=== PATIENT | female | born 1975 | race Two or more races ===

== ENCOUNTER 2017-04-22 21:00 | Inpatient (IN) | payer SELFPAY ==
[~2017-04-22] VITALS: Ht 162.6 cm; Wt 143.3 kg
[2017-04-22] MEDS ORDERED: ONDANSETRON PF 4 MG/2 ML VIAL. IV ONE (22:00)
[2017-04-22] MEDS ORDERED: IV NORMAL SALINE 1000ML BAG 1,000 ML IV ONE (22:00)
[2017-04-22] MEDS ORDERED: fentaNYL PF VIAL 100 MCG/2 ML VIAL IV ONE (22:00)
--- NOTE | 2017-04-22 22:02 | PHYS DOC ---
Past Medical History Past Medical History: Anemia, Diabetes-Type II, Hypertension, Hypothyroid Past Surgical History: Other Additional Past Surgical Histo: L. KNEE Alcohol Use: None Drug Use: None Adult General Chief Complaint Chief Complaint: MULTIPLE COMPLAINTS HPI HPI Patient is a 41 year old F who presents with abdominal pain, nausea vomiting. Patient states she's had right lower quadrant abdominal pain for the past day with increased nausea vomiting and fevers and dysuria. Patient states she's had increased urinary frequency with burning. Patient did not take her temperature home however has had chills all day. Patient has had no previous abdominal surgeries. Patient denies any chest pain or shortness of breath. Patient has no other complaints. Review of Systems Review of Systems GEN: Fever HEENT: Denies blurred vision, sore throat CV: Denies chest pain RESP: Denies shortness of air, cough GI: Right lower quadrant abdominal pain with nausea and vomiting NEURO: Denies confusion, dizziness MSK: Denies weakness, joint pain/swelling Current Medications Current Medications Current Medications Medications (Trade) Dose Ordered Sig/Simeon Start Time Stop Time Status Last Admin Dose Admin Fentanyl Citrate (Fentanyl 2ml Vial) 50 mcg 1X ONCE 04/22/17 22:00 04/22/17 22:01 DC 04/22/17 21:57 50 MCG Iohexol (Omnipaque 300 Mg/ml) 75 ml STK-MED ONCE 04/22/17 23:01 04/22/17 23:02 DC Ondansetron HCl (Zofran) 4 mg 1X ONCE 04/22/17 22:00 04/22/17 22:01 DC 04/22/17 21:56 4 MG Sodium Chloride 1,000 ml @ 1,000 mls/hr 1X ONCE 04/22/17 22:00 04/22/17 22:59 DC 04/22/17 21:56 1,000 MLS/HR Allergies Allergies Allergies Coded Allergies Type Severity Reaction Last Updated Verified No Known Drug Allergies 04/22/17 No Physical Exam Physical Exam GEN.: No apparent distress. Alert and oriented. HEENT: Head is normocephalic, atraumatic NECK: Supple. LUNGS: CTAB. HEART: RRR, S1, S2 present. Peripheral pulses intact ABDOMEN: Soft, +TTP RLQ with RBT. Positive bowel sounds. EXTREMITIES: Without any cyanosis. NEUROLOGIC: Normal speech, normal tone PSYCHIATRIC: Normal affect, normal mood. SKIN: No ulcerations Current Patient Data Vital Signs Vital Signs Date Time Temp Pulse Resp B/P (MAP) Pulse Ox O2 Delivery O2 Flow Rate FiO2 04/22/17 23:40 101 18 110/62 (78) 98 Room Air 04/22/17 21:30 98.5 98.5 Lab Values Laboratory Tests Test 04/22/17 21:36 04/22/17 22:08 04/22/17 22:59 White Blood Count 4.6 x10^3/uL (4.0-11.0) Red Blood Count 3.71 x10^6/uL (3.50-5.40) Hemoglobin 11.7 g/dL (12.0-15.5) L Hematocrit 34.7 % (36.0-47.0) L Mean Corpuscular Volume 93 fL (79-100) Mean Corpuscular Hemoglobin 32 pg (25-35) Mean Corpuscular Hemoglobin Concent 34 g/dL (31-37) Red Cell Distribution Width 13.8 % (11.5-14.5) Platelet Count 129 x10^3/uL (140-400) L Neutrophils (%) (Auto) 79 % (31-73) H Lymphocytes (%) (Auto) 18 % (24-48) L Monocytes (%) (Auto) 1 % (0-9) Eosinophils (%) (Auto) 2 % (0-3) Basophils (%) (Auto) 0 % (0-3) Neutrophils # (Auto) 3.6 x10^3uL (1.8-7.7) Lymphocytes # (Auto) 0.8 x10^3/uL (1.0-4.8) L Monocytes # (Auto) 0.0 x10^3/uL (0.0-1.1) Eosinophils # (Auto) 0.1 x10^3/uL (0.0-0.7) Basophils # (Auto) 0.0 x10^3/uL (0.0-0.2) Segmented Neutrophils % 52 % (35-66) Band Neutrophils % 20 % (0-9) H Lymphocytes % 23 % (24-48) L Monocytes % 1 % (0-10) Eosinophils % 2 % (0-5) Metamyelocytes % 1 % (0-0) H Myelocytes % 1 % (0-0) H Nucleated Red Blood Cells 1 Platelet Estimate Adequate (ADEQUATE) Sodium Level 141 mmol/L (136-145) Potassium Level 3.3 mmol/L (3.5-5.1) L Chloride Level 107 mmol/L (98-107) Carbon Dioxide Level 20 mmol/L (21-32) L Anion Gap 14 (6-14) Blood Urea Nitrogen 6 mg/dL (7-20) L Creatinine 0.8 mg/dL (0.6-1.0) Estimated GFR (Cockcroft-Gault) 78.3 BUN/Creatinine Ratio 8 (6-20) Glucose Level 112 mg/dL (70-99) H Calcium Level 8.2 mg/dL (8.5-10.1) L Total Bilirubin 1.2 mg/dL (0.2-1.0) H Aspartate Amino Transferase (AST) 32 U/L (15-37) Alanine Aminotransferase (ALT) 14 U/L (14-59) Alkaline Phosphatase 125 U/L (46-116) H Total Protein 6.9 g/dL (6.4-8.2) Albumin 2.9 g/dL (3.4-5.0) L Albumin/Globulin Ratio 0.7 (1.0-1.7) L Lipase 212 U/L (73-393) POC Urine HCG, Qualitative Hcg negative (Negative) Urine Collection Type Void Urine Color Neisha Urine Clarity Clear Urine pH 6.5 Urine Specific [place] 1.015 Urine Protein 30 mg/dL (NEG-TRACE) Urine Glucose (UA) Negative mg/dL (NEG) Urine Ketones (Stick) Negative mg/dL (NEG) Urine Blood Large (NEG) Urine Nitrite Negative (NEG) Urine Bilirubin Negative (NEG) Urine Urobilinogen Dipstick 0.2 mg/dL (0.2 mg/dL) Urine Leukocyte Esterase Trace (NEG) Urine RBC >40 /HPF (0-2) Urine WBC 11-20 /HPF (0-4) Urine Squamous Epithelial Cells Few /LPF Urine Bacteria Few /HPF (0-FEW) Urine Hyaline Casts Occasional /HPF Urine Mucus Mod /LPF Laboratory Tests 04/22/17 21:36 Laboratory Tests 04/22/17 21:36 EKG EKG [] Radiology/Procedures Radiology/Procedures CT abdomen and pelvis : IMPRESSION: CT findings consistent with acute appendicitis, without evidence of rupture or abscess formation. Small volume of free fluid present in the abdomen and pelvis.[] Course & Med Decision Making Course & Med Decision Making Pertinent Labs and Imaging studies reviewed. (See chart for details) ED course: Patient was seen and examined emergency room CBC, CMP, lipase, UA, urine , CT scan abdomen pelvis were ordered 0010: Updated patient on CT findings and plan to admit for surgery 0018: Discussed CC/HP/PMH with Dr. Yeh and recommends admit to medicine and to start the patient on antibiotics 0025: Discussed CC/HP/PMH with Dr. Ramos and recommends admit [] [] Dragon Disclaimer Dragon Disclaimer This electronic medical record was generated, in whole or in part, using a voice recognition dictation system. Departure Departure Impression: Primary Impression: Acute appendicitis Disposition: 09 ADMITTED INPATIENT Admitting Physician: Danitza Ramos Condition: STABLE Referrals: NO PCP (PCP) Problem Qualifiers Primary Impression: Acute appendicitis Acute appendicitis type: unspecified acute appendicitis type Qualified Codes : K35.80 - Unspecified acute appendicitis CLARITA CRAIN DO Apr 22, 2017 22:02
[2017-04-22 22:05] LABS: BASO % 0 % (0-3); EOS % 2 % (0-3); HEMATOCRIT 34.7 % (36.0-47.0); HEMOGLOBIN 11.7 g/dL (12.0-15.5); LYMPH # 0.8 x10^3/uL (1.0-4.8); LYMPH % 18 % (24-48); MEAN CORPUSCULAR HEMOGLOBIN 32 pg (25-35); MEAN CORPUSCULAR HGB CONC 34 g/dL (31-37); MEAN CORPUSCULAR VOLUME 93 fL (79-100); MONO % 1 % (0-9); NEUT % 79 % (31-73); PLATELET COUNT 129 x10^3/uL (140-400); RED BLOOD COUNT 3.71 x10^6/uL (3.50-5.40); RED CELL DISTRIBUTION WIDTH 13.8 % (11.5-14.5); WHITE BLOOD COUNT 4.6 x10^3/uL (4.0-11.0)
[2017-04-22 22:08] LABS: CALCIUM 8.2 mg/dL (8.5-10.1); CREATININE 0.8 mg/dL (0.6-1.0); GFR 78.3; POTASSIUM 3.3 mmol/L (3.5-5.1)
[2017-04-22 22:14] LABS: ALBUMIN 2.9 g/dL (3.4-5.0); ALBUMIN/GLOBULIN RATIO 0.7 (1.0-1.7); TOTAL BILIRUBIN 1.2 mg/dL (0.2-1.0); TOTAL PROTEIN 6.9 g/dL (6.4-8.2)
[2017-04-22 22:39] LABS: % EOS 2 % (0-5); NUCLEATED RBC 1; PLT ESTIMATE ADEQUATE (ADEQUATE)
[2017-04-22] MEDS ORDERED: IOHEXOL 300 MG/ML 75 ML VIAL ONE (23:01)
[2017-04-22 23:07] LABS: BILIRUBIN,URINE NEGATIVE (NEG); GLUCOSE,URINE NEGATIVE (NEG); NITRITE,URINE NEGATIVE (NEG); PH,URINE 6.5; PROTEIN,URINE 30 mg/dL (NEG-TRACE); UROBILINOGEN,URINE 0.2 mg/dL (0.2 mg/dL)
[2017-04-22 23:15] LABS: RBC,URINE >40 /HPF (0-2)
[2017-04-22 23:16] LABS: BACTERIA,URINE FEW /HPF (0-FEW); SQUAMOUS EPITHELIAL CELL,UR FEW /LPF
--- NOTE | 2017-04-22 23:36 | RAD ---
EXAM: Abdomen and pelvis CT with intravenous contrast. HISTORY: 41-year-old female with right lower quadrant pain. TECHNIQUE: Computed tomographic images of the abdomen and pelvis were obtained following the administration of 75 cc of Omni 300 intravenous contrast. Multiplanar reformatting was performed. PQRS compliance statement: One or more of the following individualized dose reduction techniques were utilized for this examination: 1. Automated exposure control 2. Adjustment of the mA and/or kV according to patient size 3. Use of iterative reconstruction technique COMPARISON: None. FINDINGS: The lung bases demonstrate no acute finding. The liver, spleen, pancreas, adrenal glands and bilateral kidneys demonstrate no focal abnormality. The gallbladder appears distended without calcified gallstones nor wall thickening seen. The GI tract demonstrates no dilated bowel loops to suggest obstruction. There is a dilated, tubular, blind-ending structure present within the right lower quadrant consistent with the appendix measuring up to approximately 1.2 cm in diameter. Mild adjacent soft tissue stranding is present. No adjacent extraluminal air nor abscess formation is seen. The urinary bladder is decompressed and not well evaluated. The uterus and bilateral adnexa demonstrate no focal abnormality. A small volume of free fluid is present within the dependent abdomen and pelvis. No intra-abdominal or pelvic free air or significant lymphadenopathy is seen. Aorta is normal in caliber. Overlying soft tissues and visualized osseous structures demonstrate no acute or suspicious finding. IMPRESSION: CT findings consistent with acute appendicitis, without evidence of rupture or abscess formation. Small volume of free fluid present in the abdomen and pelvis. Electronically signed by: Alissa Theodore MD (04/22/2017 11:32 PM) [facility]
[2017-04-23] VITALS (16 sets, daily range): BP systolic 84–116; BP diastolic 40–61
[2017-04-23] MEDS ORDERED: ACETAMINOPHEN 325 MG TABLET. PO PRN (00:30)
[2017-04-23] MEDS ORDERED: ONDANSETRON PF 4 MG/2 ML VIAL. IV PRN ×2 (00:30→08:15)
[2017-04-23] MEDS: MORPHINE SULFATE 4 MG/ML DISP.SYRIN. IV PRN ×2 (00:40→15:41)
[2017-04-23] MEDS: IV NORMAL SALINE 1000ML BAG 1,000 ML IV SCH ×3 (00:49→15:49)
[2017-04-23] MEDS ORDERED: PIPERACILLIN/TAZOBACTAM 4.5 GM in IV NORMAL SALINE 100ML 100 ML IV ONE (01:00)
[2017-04-23] MEDS ORDERED: IV NORMAL SALINE 1000ML BAG 1,000 ML IV ONE ×6 (02:00→14:30)
[2017-04-23] MEDS ORDERED: NALOXONE 0.4 MG/ML VIAL. ONE (02:27)
[2017-04-23] MEDS ORDERED: NALOXONE 0.4 MG/ML VIAL. IV ONE (02:45)
[2017-04-23] MEDS ORDERED: NOREPINEPHRIN PREMIX 250 ML IV PRN (04:45)
[2017-04-23] MEDS: LEVOTHYROXINE 100 MCG TABLET PO SCH (06:40)
[2017-04-23] MEDS ORDERED: BUPIVAC MPF-EPI 0.5%-1:200000 30 ML VIAL. ONE (07:29)
[2017-04-23] MEDS ORDERED: IV NORMAL SALINE 500ML BAG 500 ML IV ONE (07:45)
--- NOTE | 2017-04-23 07:47 | PDOC2 ---
CONSULT Date of Consult Date of Consult DATE: 04/23/17 TIME: 07:44 History of Present Illness Reason for Visit: The patient is a 41 year old female who reported to the ER with abdominal pain. She does not speak Frisian and a family member is able to interpret. She developed lower abdominal pain starting yesterday. The pain is nonradiating and described as sharp and severe. Past Medical History Past Medical History diabetes, morbid obesity Past Surgical History Past Surgical History knee surgery Social History No Current Problem List Problem List Problems Medical Problems: (1) Acute appendicitis Status: Acute Current Medications Current Medications Current Medications Sodium Chloride 1,000 ml @ 1,000 mls/hr 1X ONCE IV Last administered on 21:56; Start 04/22/17 at 22:00; Stop 04/22/17 at 22:59; Status DC Ondansetron HCl (Zofran) 4 mg 1X ONCE IV Last administered on 04/22/17 21:56; Start 04/22/17 at 22:00; Stop 04/22/17 at 22:01; Status DC Fentanyl Citrate (Fentanyl 2ml Vial) 50 mcg 1X ONCE IV Last administered on 21:57; Start 04/22/17 at 22:00; Stop 04/22/17 at 22:01; Status DC Iohexol (Omnipaque 300 Mg/ml) 75 ml [employer].IO ONCE .ROUTE ; Start 04/22/17 at 23:01 ; Stop 04/22/17 at 23:02; Status DC Piperacillin Sod/ Tazobactam Sod 4.5 gm/Sodium Chloride 100 ml @ 200 mls/hr 1X ONCE IV Last administered on 04/23/17 00:50; Start 04/23/17 at 01:00; Stop 04/23/17 at 01:29; Status DC Ondansetron HCl (Zofran) 4 mg PRN Q8HRS PRN IV NAUSEA/VOMITING; Start 04/23/17 at 00:30; Stop 04/24/17 at 00:29 Morphine Sulfate 4 mg PRN Q2HR PRN IV SEVERE PAIN Last administered on 00:40; Start 04/23/17 at 00:30; Stop 04/24/17 at 00:29 Sodium Chloride 1,000 ml @ 100 mls/hr Q10H IV Last administered on 04/23/17 00 :49; Start 04/23/17 at 00:30; Stop 04/24/17 at 00:29 Acetaminophen (Tylenol) 650 mg PRN Q4HRS PRN PO FEVER; Start 04/23/17 at 00:30; Stop 04/24/17 at 00:29 Sodium Chloride 1,000 ml @ 1,000 mls/hr 1X ONCE IV Last administered on 02:03; Start 04/23/17 at 02:00; Stop 04/23/17 at 02:59; Status DC Naloxone HCl (Narcan) 0.4 mg STK-MED ONCE .ROUTE ; Start 04/23/17 at 02:27; Stop 04/23/17 at 02:28; Status DC Naloxone HCl (Narcan) 0.2 mg 1X ONCE IV Last administered on 04/23/17 02:43; Start 04/23/17 at 02:45; Stop 04/23/17 at 02:47; Status DC Sodium Chloride 1,000 ml @ 1,000 mls/hr 1X ONCE IV Last administered on 03:52; Start 04/23/17 at 04:00; Stop 04/23/17 at 04:59; Status DC Norepinephrine Bitartrate 250 ml @ 0 mls/hr CONT PRN IV SEE I/O RECORD; Start 04/23/17 at 04:45 Levothyroxine Sodium (Synthroid) 200 mcg DAILY07 PO Last administered on 06:40; Start 04/23/17 at 07:00 Sodium Chloride 1,000 ml @ 1,000 mls/hr 1X ONCE IV Last administered on 05:41; Start 04/23/17 at 06:00; Stop 04/23/17 at 06:59; Status DC Bupivacaine HCl/ Epinephrine Bitart (Sensorcain-Mpf Epi 0.5%-1:[id number]) 30 ml STK -MED ONCE .ROUTE ; Start 04/23/17 at 07:29; Stop 04/23/17 at 07:30; Status DC Sodium Chloride 500 ml @ 500 mls/hr 1X ONCE IV Last administered on 04/23/17 07:40; Start 04/23/17 at 07:45; Stop 04/23/17 at 08:44 Allergies Allergies: Coded Allergies: No Known Drug Allergies (Unverified , 04/22/17) ROS General: No: Chills, Night Sweats, Fatigue, Malaise, Appetite, Other PSYCHOLOGICAL ROS: No: Anxiety, Behavioral Disorder, Concentration difficultie , Decreased libido, Depression, Disorientation, Hallucinations, Hostility, Irritablity, Memory difficulties, Mood Swings, Obsessive thoughts, Physical abuse, Sexual abuse, Sleep disturbances, Suicidal ideation, Other Eyes: No Blurry vision, No Decreased vision, No Double vision, No Dry eyes, No Excessive tearing, No Eye Pain, No Itchy Eyes, No Loss of vision, No Photophobia , No Scotomata, No Uses contacts, No Uses glasses, No Other HEENT: No: Heacaches, Visual Changes, Hearing change, Nasal congestion, Nasal discharge, Oral lesions, Sinus pain, Sore Throat, Epistaxis, Sneezing, Snoring, Tinnitus, Vertigo, Vocal changes, Other ALLERGY AND IMMUNOLOGY: No: Hives, Insect Bite Sensitivity, Itchy/Watery Eyes, Nasal Congestion, Post Nasal Drip, Seasonal Allergies, Other Hematological and Lymphatic: No: Bleeding Problems, Blood Clots, Blood Transfusions, Brusing, Night Sweats, Pallor, Swollen Lymph Nodes, Other ENDOCRINE: No: Breast Changes, Galactorrhea, Hair Pattern Changes, Hot Flashes , Malaise/lethargy, Mood Swings, Palpitations, Polydipsia/polyuria, Skin Changes , Temperature Intolerance, Unexpected Weight Changes, Other Respiratory: No: Cough, Hemoptysis, Orthopnea, Pleuritic Pain, Shortness of breath, SOB with excertion, Sputum Changes, Stridor, Tachypnea, Wheezing, Other Cardiovascular: No Chest Pain, No Palpitations, No Orthopnea, No Paroxysmal Noc. Dyspnea, No Edema, No Lt Headedness, No Other Gastrointestinal: Yes Abdominal Pain Genitourinary: No Dysuria, No Frequency, No Incontinence, No Hematuria, No Retention, No Discharge, No Urgency, No Pain, No Flank Pain, No Other, No , No , No , No , No , No , No Musculoskeletal: No Gait Disturbance, No Joint Pain, No Joint Stiffness, No Joint Swelling, No Muscle Pain, No Muscular Weakness, No Pain In:, No Swelling In:, No Other Neurological: No Behavorial Changes, No Bowel/Bladder ControlChng, No Confusion , No Dizziness, No Gait Disturbance, No Headaches, No Impaired Coord/balance, No Memory Loss, No Numbness/Tingling, No Seizures, No Speech Problems, No Tremors, No Visual Changes, No Weakness, No Other Skin: No Dry Skin, No Eczema, No Hair Changes, No Lumps, No Mole Changes, No Mottling, No Nail Changes, No Pruritus, No Rash, No Skin Lesion Changes, No Other, No Acne Physical Exam General: Alert, Oriented X3, mild distress HEENT: Atraumatic Lungs: Clear to auscultation Heart: Regular rate Abdomen: Soft (mobidly obese, tender with palpation in bilat lower abdomen, guards with palpation) Extremities: No clubbing, No cyanosis Skin: No rashes, No breakdown Neuro: Normal speech Psych/Mental Status: Mental status NL MUSCULOSKELETAL: No joint tenderness, No deformity Vitals VITALS Vital Signs Date Time Temp Pulse Resp B/P (MAP) Pulse Ox O2 Delivery O2 Flow Rate FiO2 04/23/17 07:34 103 20 88/40 (56) 98 Room Air 04/22/17 21:30 98.5 98.5 Labs Labs Laboratory Tests Test 04/22/17 21:36 04/22/17 22:08 04/22/17 22:59 04/23/17 04:17 White Blood Count 4.6 x10^3/uL (4.0-11.0) Red Blood Count 3.71 x10^6/uL (3.50-5.40) Hemoglobin 11.7 g/dL (12.0-15.5) Hematocrit 34.7 % (36.0-47.0) Mean Corpuscular Volume 93 fL (79-100) Mean Corpuscular Hemoglobin 32 pg (25-35) Mean Corpuscular Hemoglobin Concent 34 g/dL (31-37) Red Cell Distribution Width 13.8 % (11.5-14.5) Platelet Count 129 x10^3/uL (140-400) Neutrophils (%) (Auto) 79 % (31-73) Lymphocytes (%) (Auto) 18 % (24-48) Monocytes (%) (Auto) 1 % (0-9) Eosinophils (%) (Auto) 2 % (0-3) Basophils (%) (Auto) 0 % (0-3) Neutrophils # (Auto) 3.6 x10^3uL (1.8-7.7) Lymphocytes # (Auto) 0.8 x10^3/uL (1.0-4.8) Monocytes # (Auto) 0.0 x10^3/uL (0.0-1.1) Eosinophils # (Auto) 0.1 x10^3/uL (0.0-0.7) Basophils # (Auto) 0.0 x10^3/uL (0.0-0.2) Segmented Neutrophils % 52 % (35-66) Band Neutrophils % 20 % (0-9) Lymphocytes % 23 % (24-48) Monocytes % 1 % (0-10) Eosinophils % 2 % (0-5) Metamyelocytes % 1 % (0-0) Myelocytes % 1 % (0-0) Nucleated Red Blood Cells 1 Platelet Estimate Adequate (ADEQUATE) Sodium Level 141 mmol/L (136-145) Potassium Level 3.3 mmol/L (3.5-5.1) Chloride Level 107 mmol/L (98-107) Carbon Dioxide Level 20 mmol/L (21-32) Anion Gap 14 (6-14) Blood Urea Nitrogen 6 mg/dL (7-20) Creatinine 0.8 mg/dL (0.6-1.0) Estimated GFR (Cockcroft-Gault) 78.3 BUN/Creatinine Ratio 8 (6-20) Glucose Level 112 mg/dL (70-99) Calcium Level 8.2 mg/dL (8.5-10.1) Total Bilirubin 1.2 mg/dL (0.2-1.0) Aspartate Amino Transf (AST/SGOT) 32 U/L (15-37) Alanine Aminotransferase (ALT/SGPT) 14 U/L (14-59) Alkaline Phosphatase 125 U/L (46-116) Total Protein 6.9 g/dL (6.4-8.2) Albumin 2.9 g/dL (3.4-5.0) Albumin/Globulin Ratio 0.7 (1.0-1.7) Lipase 212 U/L (73-393) Bedside Urine HCG, Qualitative Hcg negative (Negative) Urine Collection Type Void Urine Color Neisha Urine Clarity Clear Urine pH 6.5 Urine Specific [place] 1.015 Urine Protein 30 mg/dL (NEG-TRACE) Urine Glucose (UA) Negative mg/dL (NEG) Urine Ketones (Stick) Negative mg/dL (NEG) Urine Blood Large (NEG) Urine Nitrite Negative (NEG) Urine Bilirubin Negative (NEG) Urine Urobilinogen Dipstick 0.2 mg/dL (0.2 mg/dL) Urine Leukocyte Esterase Trace (NEG) Urine RBC >40 /HPF (0-2) Urine WBC 11-20 /HPF (0-4) Urine Squamous Epithelial Cells Few /LPF Urine Bacteria Few /HPF (0-FEW) Urine Hyaline Casts Occasional /HPF Urine Mucus Mod /LPF Lactic Acid Level 5.3 mmol/L (0.4-2.0) Test 04/23/17 04:27 Glucose (Fingerstick) 94 mg/dL (70-99) Laboratory Tests Test 04/22/17 21:36 04/22/17 22:08 04/22/17 22:59 04/23/17 04:17 White Blood Count 4.6 x10^3/uL (4.0-11.0) Red Blood Count 3.71 x10^6/uL (3.50-5.40) Hemoglobin 11.7 g/dL (12.0-15.5) Hematocrit 34.7 % (36.0-47.0) Mean Corpuscular Volume 93 fL (79-100) Mean Corpuscular Hemoglobin 32 pg (25-35) Mean Corpuscular Hemoglobin Concent 34 g/dL (31-37) Red Cell Distribution Width 13.8 % (11.5-14.5) Platelet Count 129 x10^3/uL (140-400) Neutrophils (%) (Auto) 79 % (31-73) Lymphocytes (%) (Auto) 18 % (24-48) Monocytes (%) (Auto) 1 % (0-9) Eosinophils (%) (Auto) 2 % (0-3) Basophils (%) (Auto) 0 % (0-3) Neutrophils # (Auto) 3.6 x10^3uL (1.8-7.7) Lymphocytes # (Auto) 0.8 x10^3/uL (1.0-4.8) Monocytes # (Auto) 0.0 x10^3/uL (0.0-1.1) Eosinophils # (Auto) 0.1 x10^3/uL (0.0-0.7) Basophils # (Auto) 0.0 x10^3/uL (0.0-0.2) Segmented Neutrophils % 52 % (35-66) Band Neutrophils % 20 % (0-9) Lymphocytes % 23 % (24-48) Monocytes % 1 % (0-10) Eosinophils % 2 % (0-5) Metamyelocytes % 1 % (0-0) Myelocytes % 1 % (0-0) Nucleated Red Blood Cells 1 Platelet Estimate Adequate (ADEQUATE) Sodium Level 141 mmol/L (136-145) Potassium Level 3.3 mmol/L (3.5-5.1) Chloride Level 107 mmol/L (98-107) Carbon Dioxide Level 20 mmol/L (21-32) Anion Gap 14 (6-14) Blood Urea Nitrogen 6 mg/dL (7-20) Creatinine 0.8 mg/dL (0.6-1.0) Estimated GFR (Cockcroft-Gault) 78.3 BUN/Creatinine Ratio 8 (6-20) Glucose Level 112 mg/dL (70-99) Calcium Level 8.2 mg/dL (8.5-10.1) Total Bilirubin 1.2 mg/dL (0.2-1.0) Aspartate Amino Transf (AST/SGOT) 32 U/L (15-37) Alanine Aminotransferase (ALT/SGPT) 14 U/L (14-59) Alkaline Phosphatase 125 U/L (46-116) Total Protein 6.9 g/dL (6.4-8.2) Albumin 2.9 g/dL (3.4-5.0) Albumin/Globulin Ratio 0.7 (1.0-1.7) Lipase 212 U/L (73-393) Bedside Urine HCG, Qualitative Hcg negative (Negative) Urine Collection Type Void Urine Color Neisha Urine Clarity Clear Urine pH 6.5 Urine Specific [place] 1.015 Urine Protein 30 mg/dL (NEG-TRACE) Urine Glucose (UA) Negative mg/dL (NEG) Urine Ketones (Stick) Negative mg/dL (NEG) Urine Blood Large (NEG) Urine Nitrite Negative (NEG) Urine Bilirubin Negative (NEG) Urine Urobilinogen Dipstick 0.2 mg/dL (0.2 mg/dL) Urine Leukocyte Esterase Trace (NEG) Urine RBC >40 /HPF (0-2) Urine WBC 11-20 /HPF (0-4) Urine Squamous Epithelial Cells Few /LPF Urine Bacteria Few /HPF (0-FEW) Urine Hyaline Casts Occasional /HPF Urine Mucus Mod /LPF Lactic Acid Level 5.3 mmol/L (0.4-2.0) Test 04/23/17 04:27 Glucose (Fingerstick) 94 mg/dL (70-99) Images Images CT abdomen/pelvis: IMPRESSION: CT findings consistent with acute appendicitis, without evidence of rupture or abscess formation. Small volume of free fluid present in the abdomen and pelvis. Assessment/Plan Assessment/Plan Abdominal pain, morbid obesity, diabetes, plan for laparoscopy with expected appendectomy. I reviewed the details and risks of surgery with the patient. She understands and would like to proceed. MARIA FERNANDA WADE MD Apr 23, 2017 07:47
[2017-04-23] MEDS ORDERED: DEXAMETHASONE SOD PHOS 20 MG/5 ML VIAL. ONE (08:07)
[2017-04-23] MEDS ORDERED: ONDANSETRON PF 4 MG/2 ML VIAL. ONE (08:07)
[2017-04-23] MEDS ORDERED: SUCCINYLCHOLINE 200 MG/10 ML VIAL. ONE (08:07)
[2017-04-23] MEDS ORDERED: ROCURONIUM 100 MG/10 ML VIAL. ONE (08:07)
[2017-04-23] MEDS ORDERED: fentaNYL PF VIAL 100 MCG/2 ML VIAL ONE (08:07)
[2017-04-23] MEDS ORDERED: PROPOFOL 20 ML IV ONE (08:07)
[2017-04-23] MEDS ORDERED: LIDOCAINE 2% PF Vial for OR 5 ML VIAL. ONE (08:07)
[2017-04-23] MEDS ORDERED: IV RINGERS,LACTATED 1000ML 1,000 ML IV SCH (08:15)
[2017-04-23] MEDS ORDERED: MORPHINE SULFATE 2 MG/ML DISP.SYRIN. IV PRN (08:15)
[2017-04-23] MEDS ORDERED: fentaNYL PF VIAL 100 MCG/2 ML VIAL IV PRN ×2 (08:15)
[2017-04-23] MEDS ORDERED: HYDROmorphone 2 MG/ML VIAL IV PRN (08:15)
[2017-04-23] MEDS ORDERED: PROCHLORPERAZINE 10 MG/2 ML VIAL. IV PRN (08:15)
[2017-04-23] MEDS ORDERED: LIDOCAINE 1% 1 ML SYRINGE. ID PRN (08:15)
[2017-04-23] MEDS ORDERED: KETAMINE HCL 500 MG/10 ML VIAL. ONE (08:34)
[2017-04-23] MEDS ORDERED: GLYCOPYRROLATE 1 MG/5 ML VIAL. ONE (08:40)
[2017-04-23] MEDS: PIPERACILLIN/TAZOBACTAM 3.375 GM in IV NORMAL SALINE 50ML 50 ML IV SCH ×4 (08:57→23:43)
--- NOTE | 2017-04-23 09:05 | PDOC1 ---
History and Physical Date of Admission Date of Admission DATE: 04/23/17 TIME: 08:58 Identification/Chief Complaint Chief Complaint abd pain Problems: Source Source: Caregiver, Chart review, Patient History of Present Illness History of Present Illness Ms. Avendaño is a 41 year old female, admit for acute abd pain. Pain has worsened for a few days, but severe pain < 12 hours, was 10/ 10 pain , not remitting, some benefit from IV pain meds in ER. pain is in lower abdomen, much worse with any movement, Plans to goto OR this AM She does not speak [place]ian, some conversation in maltese, and a friend assisted. The pain is nonradiating and described as sharp and severe. Past Medical History Cardiovascular: HTN Endocrine: Diabetes Family History Family History: Diabetes Social History Smoke: No ALCOHOL: none Drugs: None Current Problem List Problem List Problems Medical Problems: (1) Acute appendicitis Status: Acute Problems: Current Medications Current Medications Current Medications Sodium Chloride 1,000 ml @ 1,000 mls/hr 1X ONCE IV Last administered on 21:56; Start 04/22/17 at 22:00; Stop 04/22/17 at 22:59; Status DC Ondansetron HCl (Zofran) 4 mg 1X ONCE IV Last administered on 04/22/17 21:56; Start 04/22/17 at 22:00; Stop 04/22/17 at 22:01; Status DC Fentanyl Citrate (Fentanyl 2ml Vial) 50 mcg 1X ONCE IV Last administered on 21:57; Start 04/22/17 at 22:00; Stop 04/22/17 at 22:01; Status DC Iohexol (Omnipaque 300 Mg/ml) 75 ml STK-MED ONCE .ROUTE ; Start 04/22/17 at 23:01 ; Stop 04/22/17 at 23:02; Status DC Piperacillin Sod/ Tazobactam Sod 4.5 gm/Sodium Chloride 100 ml @ 200 mls/hr 1X ONCE IV Last administered on 04/23/17 00:50; Start 04/23/17 at 01:00; Stop 04/23/17 at 01:29; Status DC Ondansetron HCl (Zofran) 4 mg PRN Q8HRS PRN IV NAUSEA/VOMITING; Start 04/23/17 at 00:30; Stop 04/24/17 at 00:29 Morphine Sulfate 4 mg PRN Q2HR PRN IV SEVERE PAIN Last administered on 00:40; Start 04/23/17 at 00:30; Stop 04/24/17 at 00:29 Sodium Chloride 1,000 ml @ 100 mls/hr Q10H IV Last administered on 04/23/17 00 :49; Start 04/23/17 at 00:30; Stop 04/24/17 at 00:29 Acetaminophen (Tylenol) 650 mg PRN Q4HRS PRN PO FEVER; Start 04/23/17 at 00:30; Stop 04/24/17 at 00:29 Sodium Chloride 1,000 ml @ 1,000 mls/hr 1X ONCE IV Last administered on 02:03; Start 04/23/17 at 02:00; Stop 04/23/17 at 02:59; Status DC Naloxone HCl (Narcan) 0.4 mg STK-MED ONCE .ROUTE ; Start 04/23/17 at 02:27; Stop 04/23/17 at 02:28; Status DC Naloxone HCl (Narcan) 0.2 mg 1X ONCE IV Last administered on 04/23/17 02:43; Start 04/23/17 at 02:45; Stop 04/23/17 at 02:47; Status DC Sodium Chloride 1,000 ml @ 1,000 mls/hr 1X ONCE IV Last administered on 03:52; Start 04/23/17 at 04:00; Stop 04/23/17 at 04:59; Status DC Norepinephrine Bitartrate 250 ml @ 0 mls/hr CONT PRN IV SEE I/O RECORD Last administered on 04/23/17 08:05; Start 04/23/17 at 04:45 Levothyroxine Sodium (Synthroid) 200 mcg DAILY07 PO Last administered on 06:40; Start 04/23/17 at 07:00 Sodium Chloride 1,000 ml @ 1,000 mls/hr 1X ONCE IV Last administered on 05:41; Start 04/23/17 at 06:00; Stop 04/23/17 at 06:59; Status DC Bupivacaine HCl/ Epinephrine Bitart (Sensorcain-Mpf Epi 0.5%-[id number]) 30 ml STK -MED ONCE .ROUTE ; Start 04/23/17 at 07:29; Stop 04/23/17 at 07:30; Status DC Sodium Chloride 500 ml @ 500 mls/hr 1X ONCE IV Last administered on 04/23/17t 07:40; Start 04/23/17 at 07:45; Stop 04/23/17 at 08:44; Status DC Piperacillin Sod/ Tazobactam Sod 4.5 gm/Sodium Chloride 100 ml @ 200 mls/hr Q6HRS IV ; Start 04/23/17 at 12:00; Status UNV Piperacillin Sod/ Tazobactam Sod 3.375 gm/Sodium Chloride 50 ml @ 100 mls/hr Q6HRS IV ; Start 04/23/17 at 08:00 Dexamethasone Sodium Phosphate (Decadron) 20 mg STK-MED ONCE .ROUTE ; Start 04/23 at 08:07; Stop 04/23/17 at 08:08; Status DC Ondansetron HCl (Zofran) 4 mg STK-MED ONCE .ROUTE ; Start 04/23/17 at 08:07; Stop 04/23/17 at 08:08; Status DC Propofol 20 ml @ As Directed STK-MED ONCE IV ; Start 04/23/17 at 08:07; Stop 04/23 at 08:08; Status DC Lidocaine HCl (Lidocaine Pf 2% Vial) 5 ml STK-MED ONCE .ROUTE ; Start 04/23/17 at 08:07; Stop 04/23/17 at 08:08; Status DC Fentanyl Citrate (Fentanyl 2ml Vial) 100 mcg STK-MED ONCE .ROUTE ; Start at 08:07; Stop 04/23/17 at 08:08; Status DC Rocuronium Roll (Zemuron) 100 mg STK-MED ONCE .ROUTE ; Start 04/23/17 at 08:07 ; Stop 04/23/17 at 08:08; Status DC Succinylcholine Chloride (Anectine) 200 mg STK-MED ONCE .ROUTE ; Start 04/23/17 at 08:07; Stop 04/23/17 at 08:08; Status DC Ondansetron HCl (Zofran) 4 mg PRN Q6HRS PRN IV NAUSEA/VOMITING; Start 04/23/17 at 08:15; Stop 04/24/17 at 08:14 Fentanyl Citrate (Fentanyl 2ml Vial) 25 mcg PRN Q5MIN PRN IV MILD PAIN; Start 04/23/17 at 08:15; Stop 04/24/17 at 08:14 Fentanyl Citrate (Fentanyl 2ml Vial) 50 mcg PRN Q5MIN PRN IV MODERATE PAIN; Start 04/23/17 at 08:15; Stop 04/24/17 at 08:14 Morphine Sulfate 1 mg PRN Q10MIN PRN IV SEVERE PAIN; Start 04/23/17 at 08:15; Stop 04/24/17 at 08:14 Ringer's Solution 1,000 ml @ 30 mls/hr Q24H IV ; Start 04/23/17 at 08:15; Stop 04/23/17 at 20:14 Lidocaine HCl 2 ml PRN 1X PRN ID PRIOR TO IV START; Start 04/23/17 at 08:15; Stop 04/24/17 at 08:14 Hydromorphone HCl (Dilaudid) 0.5 mg PRN Q10MIN PRN IV SEV PAIN, Second choice; Start 04/23/17 at 08:15; Stop 04/24/17 at 08:14 Prochlorperazine Edisylate (Compazine) 5 mg PACU PRN PRN IV NAUSEA, MRX1; Start 04/23/17 at 08:15; Stop 04/24/17 at 08:14 Ketamine HCl 500 mg STK-MED ONCE .ROUTE ; Start 04/23/17 at 08:34; Stop 04/23/17 at 08:35; Status DC Glycopyrrolate (Robinul) 1 mg STK-MED ONCE .ROUTE ; Start 04/23/17 at 08:40; Stop 04/23/17 at 08:41; Status DC Allergies Allergies: Coded Allergies: No Known Drug Allergies (Unverified , 04/22/17) ROS General: No: Chills, Night Sweats, Fatigue, Malaise, Appetite, Other PSYCHOLOGICAL ROS: No: Anxiety, Behavioral Disorder, Concentration difficultie , Decreased libido, Depression, Disorientation, Hallucinations, Hostility, Irritablity, Memory difficulties, Mood Swings, Obsessive thoughts, Physical abuse, Sexual abuse, Sleep disturbances, Suicidal ideation, Other HEENT: No: Heacaches, Visual Changes, Hearing change, Nasal congestion, Nasal discharge, Oral lesions, Sinus pain, Sore Throat, Epistaxis, Sneezing, Snoring, Tinnitus, Vertigo, Vocal changes, Other Respiratory: No: Cough, Hemoptysis, Orthopnea, Pleuritic Pain, Shortness of breath, SOB with excertion, Sputum Changes, Stridor, Tachypnea, Wheezing, Other Cardiovascular: No Chest Pain, No Palpitations, No Orthopnea, No Paroxysmal Noc. Dyspnea, No Edema, No Lt Headedness, No Other Gastrointestinal: Yes Nausea, Yes Vomiting, Yes Abdominal Pain, No Diarrhea, No Constipation, No Melena, No Hematochezia, No Other Genitourinary: No Dysuria, No Frequency, No Incontinence, No Hematuria, No Retention, No Discharge, No Urgency, No Pain, No Flank Pain, No Other, No , No , No , No , No , No , No Musculoskeletal: Yes Joint Stiffness, No Gait Disturbance, No Joint Pain, No Joint Swelling, No Muscle Pain, No Muscular Weakness, No Pain In:, No Swelling In:, No Other Neurological: No Behavorial Changes, No Bowel/Bladder ControlChng, No Confusion , No Dizziness, No Gait Disturbance, No Headaches, No Impaired Coord/balance, No Memory Loss, No Numbness/Tingling, No Seizures, No Speech Problems, No Tremors, No Visual Changes, No Weakness, No Other Skin: No Dry Skin, No Eczema, No Hair Changes, No Lumps, No Mole Changes, No Mottling, No Nail Changes, No Pruritus, No Rash, No Skin Lesion Changes, No Other, No Acne Physical Exam General: Alert, Oriented X3 HEENT: Atraumatic, PERRLA Lungs: Clear to auscultation Heart: S1S2 Abdomen: Normal bowel sounds, Soft (tender, RLQ, very obese, some guarding, ) Extremities: No cyanosis, No edema Skin: No breakdown Neuro: Normal tone, Cranial nerves 3-12 NL Psych/Mental Status: Mental status NL, Mood NL Vitals Vitals Vital Signs Date Time Temp Pulse Resp B/P (MAP) Pulse Ox O2 Delivery O2 Flow Rate FiO2 04/23/17 08:18 101 20 142/77 (98) 99 Room Air 04/22/17 21:30 98.5 98.5 Labs Labs Laboratory Tests Test 04/22/17 21:36 04/22/17 22:08 04/22/17 22:59 04/23/17 04:17 White Blood Count 4.6 x10^3/uL (4.0-11.0) Red Blood Count 3.71 x10^6/uL (3.50-5.40) Hemoglobin 11.7 g/dL (12.0-15.5) Hematocrit 34.7 % (36.0-47.0) Mean Corpuscular Volume 93 fL (79-100) Mean Corpuscular Hemoglobin 32 pg (25-35) Mean Corpuscular Hemoglobin Concent 34 g/dL (31-37) Red Cell Distribution Width 13.8 % (11.5-14.5) Platelet Count 129 x10^3/uL (140-400) Neutrophils (%) (Auto) 79 % (31-73) Lymphocytes (%) (Auto) 18 % (24-48) Monocytes (%) (Auto) 1 % (0-9) Eosinophils (%) (Auto) 2 % (0-3) Basophils (%) (Auto) 0 % (0-3) Neutrophils # (Auto) 3.6 x10^3uL (1.8-7.7) Lymphocytes # (Auto) 0.8 x10^3/uL (1.0-4.8) Monocytes # (Auto) 0.0 x10^3/uL (0.0-1.1) Eosinophils # (Auto) 0.1 x10^3/uL (0.0-0.7) Basophils # (Auto) 0.0 x10^3/uL (0.0-0.2) Segmented Neutrophils % 52 % (35-66) Band Neutrophils % 20 % (0-9) Lymphocytes % 23 % (24-48) Monocytes % 1 % (0-10) Eosinophils % 2 % (0-5) Metamyelocytes % 1 % (0-0) Myelocytes % 1 % (0-0) Nucleated Red Blood Cells 1 Platelet Estimate Adequate (ADEQUATE) Sodium Level 141 mmol/L (136-145) Potassium Level 3.3 mmol/L (3.5-5.1) Chloride Level 107 mmol/L (98-107) Carbon Dioxide Level 20 mmol/L (21-32) Anion Gap 14 (6-14) Blood Urea Nitrogen 6 mg/dL (7-20) Creatinine 0.8 mg/dL (0.6-1.0) Estimated GFR (Cockcroft-Gault) 78.3 BUN/Creatinine Ratio 8 (6-20) Glucose Level 112 mg/dL (70-99) Calcium Level 8.2 mg/dL (8.5-10.1) Total Bilirubin 1.2 mg/dL (0.2-1.0) Aspartate Amino Transf (AST/SGOT) 32 U/L (15-37) Alanine Aminotransferase (ALT/SGPT) 14 U/L (14-59) Alkaline Phosphatase 125 U/L (46-116) Total Protein 6.9 g/dL (6.4-8.2) Albumin 2.9 g/dL (3.4-5.0) Albumin/Globulin Ratio 0.7 (1.0-1.7) Lipase 212 U/L (73-393) Bedside Urine HCG, Qualitative Hcg negative (Negative) Urine Collection Type Void Urine Color Neisha Urine Clarity Clear Urine pH 6.5 Urine Specific [place] 1.015 Urine Protein 30 mg/dL (NEG-TRACE) Urine Glucose (UA) Negative mg/dL (NEG) Urine Ketones (Stick) Negative mg/dL (NEG) Urine Blood Large (NEG) Urine Nitrite Negative (NEG) Urine Bilirubin Negative (NEG) Urine Urobilinogen Dipstick 0.2 mg/dL (0.2 mg/dL) Urine Leukocyte Esterase Trace (NEG) Urine RBC >40 /HPF (0-2) Urine WBC 11-20 /HPF (0-4) Urine Squamous Epithelial Cells Few /LPF Urine Bacteria Few /HPF (0-FEW) Urine Hyaline Casts Occasional /HPF Urine Mucus Mod /LPF Lactic Acid Level 5.3 mmol/L (0.4-2.0) Test 04/23/17 04:27 Glucose (Fingerstick) 94 mg/dL (70-99) Laboratory Tests Test 04/22/17 21:36 04/22/17 22:08 04/22/17 22:59 04/23/17 04:17 White Blood Count 4.6 x10^3/uL (4.0-11.0) Red Blood Count 3.71 x10^6/uL (3.50-5.40) Hemoglobin 11.7 g/dL (12.0-15.5) Hematocrit 34.7 % (36.0-47.0) Mean Corpuscular Volume 93 fL (79-100) Mean Corpuscular Hemoglobin 32 pg (25-35) Mean Corpuscular Hemoglobin Concent 34 g/dL (31-37) Red Cell Distribution Width 13.8 % (11.5-14.5) Platelet Count 129 x10^3/uL (140-400) Neutrophils (%) (Auto) 79 % (31-73) Lymphocytes (%) (Auto) 18 % (24-48) Monocytes (%) (Auto) 1 % (0-9) Eosinophils (%) (Auto) 2 % (0-3) Basophils (%) (Auto) 0 % (0-3) Neutrophils # (Auto) 3.6 x10^3uL (1.8-7.7) Lymphocytes # (Auto) 0.8 x10^3/uL (1.0-4.8) Monocytes # (Auto) 0.0 x10^3/uL (0.0-1.1) Eosinophils # (Auto) 0.1 x10^3/uL (0.0-0.7) Basophils # (Auto) 0.0 x10^3/uL (0.0-0.2) Segmented Neutrophils % 52 % (35-66) Band Neutrophils % 20 % (0-9) Lymphocytes % 23 % (24-48) Monocytes % 1 % (0-10) Eosinophils % 2 % (0-5) Metamyelocytes % 1 % (0-0) Myelocytes % 1 % (0-0) Nucleated Red Blood Cells 1 Platelet Estimate Adequate (ADEQUATE) Sodium Level 141 mmol/L (136-145) Potassium Level 3.3 mmol/L (3.5-5.1) Chloride Level 107 mmol/L (98-107) Carbon Dioxide Level 20 mmol/L (21-32) Anion Gap 14 (6-14) Blood Urea Nitrogen 6 mg/dL (7-20) Creatinine 0.8 mg/dL (0.6-1.0) Estimated GFR (Cockcroft-Gault) 78.3 BUN/Creatinine Ratio 8 (6-20) Glucose Level 112 mg/dL (70-99) Calcium Level 8.2 mg/dL (8.5-10.1) Total Bilirubin 1.2 mg/dL (0.2-1.0) Aspartate Amino Transf (AST/SGOT) 32 U/L (15-37) Alanine Aminotransferase (ALT/SGPT) 14 U/L (14-59) Alkaline Phosphatase 125 U/L (46-116) Total Protein 6.9 g/dL (6.4-8.2) Albumin 2.9 g/dL (3.4-5.0) Albumin/Globulin Ratio 0.7 (1.0-1.7) Lipase 212 U/L (73-393) Bedside Urine HCG, Qualitative Hcg negative (Negative) Urine Collection Type Void Urine Color Neisha Urine Clarity Clear Urine pH 6.5 Urine Specific [place] 1.015 Urine Protein 30 mg/dL (NEG-TRACE) Urine Glucose (UA) Negative mg/dL (NEG) Urine Ketones (Stick) Negative mg/dL (NEG) Urine Blood Large (NEG) Urine Nitrite Negative (NEG) Urine Bilirubin Negative (NEG) Urine Urobilinogen Dipstick 0.2 mg/dL (0.2 mg/dL) Urine Leukocyte Esterase Trace (NEG) Urine RBC >40 /HPF (0-2) Urine WBC 11-20 /HPF (0-4) Urine Squamous Epithelial Cells Few /LPF Urine Bacteria Few /HPF (0-FEW) Urine Hyaline Casts Occasional /HPF Urine Mucus Mod /LPF Lactic Acid Level 5.3 mmol/L (0.4-2.0) Test 04/23/17 04:27 Glucose (Fingerstick) 94 mg/dL (70-99) VTE Prophylaxis Ordered VTE Prophylaxis Devices: Yes VTE Pharmacological Prophylaxi: Contraindicated Assessment/Plan Assessment/Plan acute abd pain acute appendicitis, Abx given, admit to tele, sepsis, but lactate from other, appy to OR this AM, gen surg morbid obesity, BMI 48 w/ mild/mod hypoalbuminemia, of acute illness hypokalemia Dm2, poor control htn JAC BLUE MD Apr 23, 2017 09:05
[2017-04-23] MEDS ORDERED: DEXTROSE 50% 25 GM / 50ML DISP.SYRIN. IV PRN (09:15)
[2017-04-23] MEDS ORDERED: NEOSTIGMINE 10 MG/10 ML VIAL. ONE ×2 (09:39→10:29)
--- NOTE | 2017-04-23 10:25 | PDOC4 ---
Operative Note Operative Note Operative Note: Preoperative Diagnosis: Acute Appendicitis Postoperative Diagnosis: Same Procedure: Laparoscopic appendectomy Surgeon: Rao Anesthesia: Gen. EBL: 20 mL Specimen: Appendix to pathology Drains: None Complications: None Indication: The patient is a 41-year-old female who reported to the emergency department with abdominal pain. Her evaluation is consistent with acute appendicitis. She was offered surgical treatment with a laparoscopic appendectomy. The risks of surgery were discussed which include bleeding, infection, visceral injury, pain, anesthetic risk, potential need for additional surgery or procedure. She understands and would like to proceed. Description: The patient was taken to the operating room and placed supine on the operating table. Gen. anesthesia was performed. The abdomen was prepped with ChloraPrep and draped in a standard surgical manner. An incision was made in the patient's left abdomen through which a visualized 5 mm trocar was inserted. A pneumoperitoneum was then created and the laparoscope was introduced. In the left lower quadrant a 5 mm trocar was inserted. In the lower mid abdomen a 12 mm trocar was inserted. Initial inspection showed some turbid darker fluid located in the lower abdomen. This was suctioned. We then directed our attention to the right lower quadrant. The appendix was identified and appeared inflamed consistent with acute appendicitis. There was no clear evidence of perforation or periappendiceal abscess. To assist with visualization and mobilization another 5 mm trocar was placed in the right abdomen. Additionally the left lower quadrant 5 mm trocar was exchanged with a 12 mm trocar. We began freeing up some of the peritoneal attachments of the appendix. The mesoappendix was then bluntly from the appendix. The mesoappendix was controlled using several clips and it was divided. The appendix was then amputated off the cecum using an Endo RADHA 45 stapling device. The appendix was then placed in an endoscopic bag and extracted at the lower abdominal incision site. The fascia there was closed with 0 Vicryl and infiltrated with half percent Marcaine with epinephrine. Several liters of sterile saline were then instilled in the abdomen primarily in the right side. This was then suctioned and efforts were made to clean up any contamination. Upon completion the staple line appeared well intact and hemostasis was good. No other abnormalities were identified grossly. The remaining ports were removed and the pneumoperitoneum was relieved. The skin at all incision sites was closed with 4-0 Monocryl. Steri-Strips and dressings were applied. The patient tolerated the procedure well and was sent to the recovery room in stable condition. At the end of the case all counts were correct. MARIA FERNANDA WADE MD Apr 23, 2017 10:25
[2017-04-23] MEDS: INSULIN ASPART 300 UNITS/3 ML INSULN.PEN SQ SCH ×3 (11:30→20:29)
[2017-04-23] MEDS ORDERED: PIPERACILLIN/TAZOBACTAM 4.5 GM in IV NORMAL SALINE 100ML 100 ML IV SCH (12:00)
[2017-04-23] MEDS: POTASSIUM CHLORIDE 10MEQ 100 ML IV SCH ×2 (12:13→15:12)
[2017-04-23 12:59] LABS: HCO3 ABG 11 mmol/L (21-28); PCO2 ABG 30 mmHg (35-46); PO2 ABG 137 mmHg (75-108); SAT O2 ABG 98 % (92-99)
[2017-04-23 13:20] LABS: FIO2 ABG 40; PH ABG 7.19 (7.35-7.45)
--- NOTE | 2017-04-23 13:59 | PDOC ---
PULMONARY PROGRESS NOTES Vitals Vital Signs Date Time Temp Pulse Resp B/P (MAP) Pulse Ox O2 Delivery O2 Flow Rate FiO2 04/23/17 13:50 99.0 98 18 102/42 (62) 100 BiPAP/CPAP 99.0 04/23/17 10:40 10 Labs Laboratory Tests Test 04/22/17 21:36 04/22/17 22:08 04/22/17 22:59 04/23/17 04:17 White Blood Count 4.6 x10^3/uL (4.0-11.0) Red Blood Count 3.71 x10^6/uL (3.50-5.40) Hemoglobin 11.7 g/dL (12.0-15.5) Hematocrit 34.7 % (36.0-47.0) Mean Corpuscular Volume 93 fL (79-100) Mean Corpuscular Hemoglobin 32 pg (25-35) Mean Corpuscular Hemoglobin Concent 34 g/dL (31-37) Red Cell Distribution Width 13.8 % (11.5-14.5) Platelet Count 129 x10^3/uL (140-400) Neutrophils (%) (Auto) 79 % (31-73) Lymphocytes (%) (Auto) 18 % (24-48) Monocytes (%) (Auto) 1 % (0-9) Eosinophils (%) (Auto) 2 % (0-3) Basophils (%) (Auto) 0 % (0-3) Neutrophils # (Auto) 3.6 x10^3uL (1.8-7.7) Lymphocytes # (Auto) 0.8 x10^3/uL (1.0-4.8) Monocytes # (Auto) 0.0 x10^3/uL (0.0-1.1) Eosinophils # (Auto) 0.1 x10^3/uL (0.0-0.7) Basophils # (Auto) 0.0 x10^3/uL (0.0-0.2) Segmented Neutrophils % 52 % (35-66) Band Neutrophils % 20 % (0-9) Lymphocytes % 23 % (24-48) Monocytes % 1 % (0-10) Eosinophils % 2 % (0-5) Metamyelocytes % 1 % (0-0) Myelocytes % 1 % (0-0) Nucleated Red Blood Cells 1 Platelet Estimate Adequate (ADEQUATE) Sodium Level 141 mmol/L (136-145) Potassium Level 3.3 mmol/L (3.5-5.1) Chloride Level 107 mmol/L (98-107) Carbon Dioxide Level 20 mmol/L (21-32) Anion Gap 14 (6-14) Blood Urea Nitrogen 6 mg/dL (7-20) Creatinine 0.8 mg/dL (0.6-1.0) Estimated GFR (Cockcroft-Gault) 78.3 BUN/Creatinine Ratio 8 (6-20) Glucose Level 112 mg/dL (70-99) Calcium Level 8.2 mg/dL (8.5-10.1) Total Bilirubin 1.2 mg/dL (0.2-1.0) Aspartate Amino Transf (AST/SGOT) 32 U/L (15-37) Alanine Aminotransferase (ALT/SGPT) 14 U/L (14-59) Alkaline Phosphatase 125 U/L (46-116) Total Protein 6.9 g/dL (6.4-8.2) Albumin 2.9 g/dL (3.4-5.0) Albumin/Globulin Ratio 0.7 (1.0-1.7) Lipase 212 U/L (73-393) Bedside Urine HCG, Qualitative Hcg negative (Negative) Urine Collection Type Void Urine Color Neisha Urine Clarity Clear Urine pH 6.5 Urine Specific [place] 1.015 Urine Protein 30 mg/dL (NEG-TRACE) Urine Glucose (UA) Negative mg/dL (NEG) Urine Ketones (Stick) Negative mg/dL (NEG) Urine Blood Large (NEG) Urine Nitrite Negative (NEG) Urine Bilirubin Negative (NEG) Urine Urobilinogen Dipstick 0.2 mg/dL (0.2 mg/dL) Urine Leukocyte Esterase Trace (NEG) Urine RBC >40 /HPF (0-2) Urine WBC 11-20 /HPF (0-4) Urine Squamous Epithelial Cells Few /LPF Urine Bacteria Few /HPF (0-FEW) Urine Hyaline Casts Occasional /HPF Urine Mucus Mod /LPF Lactic Acid Level 5.3 mmol/L (0.4-2.0) Test 04/23/17 04:27 04/23/17 10:14 04/23/17 11:50 04/23/17 12:45 Glucose (Fingerstick) 94 mg/dL (70-99) 126 mg/dL (70-99) Lactic Acid Level 7.8 mmol/L (0.4-2.0) O2 Saturation 98 % (92-99) Arterial Blood pH 7.19 (7.35-7.45) Arterial Blood pCO2 at Patient Temp 30 mmHg (35-46) Arterial Blood pO2 at Patient Temp 137 mmHg (75-108) Arterial Blood HCO3 11 mmol/L (21-28) Arterial Blood Base Excess -16 mmol/L (-3-3) FiO2 40 Laboratory Tests Test 04/22/17 21:36 04/22/17 22:08 04/22/17 22:59 04/23/17 04:17 White Blood Count 4.6 x10^3/uL (4.0-11.0) Red Blood Count 3.71 x10^6/uL (3.50-5.40) Hemoglobin 11.7 g/dL (12.0-15.5) Hematocrit 34.7 % (36.0-47.0) Mean Corpuscular Volume 93 fL (79-100) Mean Corpuscular Hemoglobin 32 pg (25-35) Mean Corpuscular Hemoglobin Concent 34 g/dL (31-37) Red Cell Distribution Width 13.8 % (11.5-14.5) Platelet Count 129 x10^3/uL (140-400) Neutrophils (%) (Auto) 79 % (31-73) Lymphocytes (%) (Auto) 18 % (24-48) Monocytes (%) (Auto) 1 % (0-9) Eosinophils (%) (Auto) 2 % (0-3) Basophils (%) (Auto) 0 % (0-3) Neutrophils # (Auto) 3.6 x10^3uL (1.8-7.7) Lymphocytes # (Auto) 0.8 x10^3/uL (1.0-4.8) Monocytes # (Auto) 0.0 x10^3/uL (0.0-1.1) Eosinophils # (Auto) 0.1 x10^3/uL (0.0-0.7) Basophils # (Auto) 0.0 x10^3/uL (0.0-0.2) Segmented Neutrophils % 52 % (35-66) Band Neutrophils % 20 % (0-9) Lymphocytes % 23 % (24-48) Monocytes % 1 % (0-10) Eosinophils % 2 % (0-5) Metamyelocytes % 1 % (0-0) Myelocytes % 1 % (0-0) Nucleated Red Blood Cells 1 Platelet Estimate Adequate (ADEQUATE) Sodium Level 141 mmol/L (136-145) Potassium Level 3.3 mmol/L (3.5-5.1) Chloride Level 107 mmol/L (98-107) Carbon Dioxide Level 20 mmol/L (21-32) Anion Gap 14 (6-14) Blood Urea Nitrogen 6 mg/dL (7-20) Creatinine 0.8 mg/dL (0.6-1.0) Estimated GFR (Cockcroft-Gault) 78.3 BUN/Creatinine Ratio 8 (6-20) Glucose Level 112 mg/dL (70-99) Calcium Level 8.2 mg/dL (8.5-10.1) Total Bilirubin 1.2 mg/dL (0.2-1.0) Aspartate Amino Transf (AST/SGOT) 32 U/L (15-37) Alanine Aminotransferase (ALT/SGPT) 14 U/L (14-59) Alkaline Phosphatase 125 U/L (46-116) Total Protein 6.9 g/dL (6.4-8.2) Albumin 2.9 g/dL (3.4-5.0) Albumin/Globulin Ratio 0.7 (1.0-1.7) Lipase 212 U/L (73-393) Bedside Urine HCG, Qualitative Hcg negative (Negative) Urine Collection Type Void Urine Color Neisha Urine Clarity Clear Urine pH 6.5 Urine Specific [place] 1.015 Urine Protein 30 mg/dL (NEG-TRACE) Urine Glucose (UA) Negative mg/dL (NEG) Urine Ketones (Stick) Negative mg/dL (NEG) Urine Blood Large (NEG) Urine Nitrite Negative (NEG) Urine Bilirubin Negative (NEG) Urine Urobilinogen Dipstick 0.2 mg/dL (0.2 mg/dL) Urine Leukocyte Esterase Trace (NEG) Urine RBC >40 /HPF (0-2) Urine WBC 11-20 /HPF (0-4) Urine Squamous Epithelial Cells Few /LPF Urine Bacteria Few /HPF (0-FEW) Urine Hyaline Casts Occasional /HPF Urine Mucus Mod /LPF Lactic Acid Level 5.3 mmol/L (0.4-2.0) Test 04/23/17 04:27 04/23/17 10:14 04/23/17 11:50 04/23/17 12:45 Glucose (Fingerstick) 94 mg/dL (70-99) 126 mg/dL (70-99) Lactic Acid Level 7.8 mmol/L (0.4-2.0) O2 Saturation 98 % (92-99) Arterial Blood pH 7.19 (7.35-7.45) Arterial Blood pCO2 at Patient Temp 30 mmHg (35-46) Arterial Blood pO2 at Patient Temp 137 mmHg (75-108) Arterial Blood HCO3 11 mmol/L (21-28) Arterial Blood Base Excess -16 mmol/L (-3-3) FiO2 40 Impression . RESP FAILURE ACUTE APPENDENTISIS SEPSIS SEC TO ABOVE START IV NAHCO3 IV FLUIDS BIPAP ANITBX D/W RN THANKS MAKAYLA GODOY MD Apr 23, 2017 13:59
[2017-04-23] MEDS: SODIUM BICARBONATE VIAL 150 MEQ in IV DEXTROSE 5% 1,000 ML IV SCH (14:33)
[2017-04-23] MEDS ORDERED: NORG1TAB6 PO (17:17)
[2017-04-23] MEDS ORDERED: FERR-36 PO (17:17)
[2017-04-23] MEDS ORDERED: METF-620 PO (17:17)
[2017-04-23] MEDS ORDERED: LEVO200T5 PO (17:17)
[2017-04-23] MEDS ORDERED: LISI1TAB3 PO (17:17)
[2017-04-23] MEDS: oxyCODONE/APAP 5/325 1 TAB TABLET PO PRN (22:06)
[2017-04-24] VITALS (17 sets, daily range): BP systolic 98–129; BP diastolic 35–82
[2017-04-24] MEDS: SODIUM BICARBONATE VIAL 150 MEQ in IV DEXTROSE 5% 1,000 ML IV SCH (01:59)
[2017-04-24 04:11] LABS: BASO % 0 % (0-3); EOS % 1 % (0-3); HEMATOCRIT 28.7 % (36.0-47.0); HEMOGLOBIN 9.4 g/dL (12.0-15.5); LYMPH # 1.2 x10^3/uL (1.0-4.8); LYMPH % 6 % (24-48); MEAN CORPUSCULAR HEMOGLOBIN 31 pg (25-35); MEAN CORPUSCULAR HGB CONC 33 g/dL (31-37); MEAN CORPUSCULAR VOLUME 95 fL (79-100); MONO % 9 % (0-9); NEUT % 85 % (31-73); PLATELET COUNT 84 x10^3/uL (140-400); RED BLOOD COUNT 3.02 x10^6/uL (3.50-5.40); RED CELL DISTRIBUTION WIDTH 14.6 % (11.5-14.5); WHITE BLOOD COUNT 21.3 x10^3/uL (4.0-11.0)
[2017-04-24 04:24] LABS: CALCIUM 6.5 mg/dL (8.5-10.1); CREATININE 1.2 mg/dL (0.6-1.0); POTASSIUM 3.8 mmol/L (3.5-5.1)
[2017-04-24] MEDS: LEVOTHYROXINE 100 MCG TABLET PO SCH (06:13)
[2017-04-24] MEDS: PIPERACILLIN/TAZOBACTAM 3.375 GM in IV NORMAL SALINE 50ML 50 ML IV SCH ×3 (06:14→19:10)
[2017-04-24 06:43] LABS: PLT ESTIMATE DECREASED (ADEQUATE)
[2017-04-24] MEDS: INSULIN ASPART 300 UNITS/3 ML INSULN.PEN SQ SCH ×4 (07:52→21:00)
--- NOTE | 2017-04-24 07:52 | PDOC ---
PULMONARY PROGRESS NOTES Vitals Vital Signs Date Time Temp Pulse Resp B/P (MAP) Pulse Ox O2 Delivery O2 Flow Rate FiO2 04/24/17 07:00 88 99/48 (65) 94 Room Air 04/24/17 06:18 97.7 97.7 04/23/17 20:01 10.0 04/23/17 18:01 18 Labs Laboratory Tests Test 04/22/17 21:36 04/22/17 22:08 04/22/17 22:59 04/23/17 04:17 White Blood Count 4.6 x10^3/uL (4.0-11.0) Red Blood Count 3.71 x10^6/uL (3.50-5.40) Hemoglobin 11.7 g/dL (12.0-15.5) Hematocrit 34.7 % (36.0-47.0) Mean Corpuscular Volume 93 fL (79-100) Mean Corpuscular Hemoglobin 32 pg (25-35) Mean Corpuscular Hemoglobin Concent 34 g/dL (31-37) Red Cell Distribution Width 13.8 % (11.5-14.5) Platelet Count 129 x10^3/uL (140-400) Neutrophils (%) (Auto) 79 % (31-73) Lymphocytes (%) (Auto) 18 % (24-48) Monocytes (%) (Auto) 1 % (0-9) Eosinophils (%) (Auto) 2 % (0-3) Basophils (%) (Auto) 0 % (0-3) Neutrophils # (Auto) 3.6 x10^3uL (1.8-7.7) Lymphocytes # (Auto) 0.8 x10^3/uL (1.0-4.8) Monocytes # (Auto) 0.0 x10^3/uL (0.0-1.1) Eosinophils # (Auto) 0.1 x10^3/uL (0.0-0.7) Basophils # (Auto) 0.0 x10^3/uL (0.0-0.2) Segmented Neutrophils % 52 % (35-66) Band Neutrophils % 20 % (0-9) Lymphocytes % 23 % (24-48) Monocytes % 1 % (0-10) Eosinophils % 2 % (0-5) Metamyelocytes % 1 % (0-0) Myelocytes % 1 % (0-0) Nucleated Red Blood Cells 1 Platelet Estimate Adequate (ADEQUATE) Sodium Level 141 mmol/L (136-145) Potassium Level 3.3 mmol/L (3.5-5.1) Chloride Level 107 mmol/L (98-107) Carbon Dioxide Level 20 mmol/L (21-32) Anion Gap 14 (6-14) Blood Urea Nitrogen 6 mg/dL (7-20) Creatinine 0.8 mg/dL (0.6-1.0) Estimated GFR (Cockcroft-Gault) 78.3 BUN/Creatinine Ratio 8 (6-20) Glucose Level 112 mg/dL (70-99) Calcium Level 8.2 mg/dL (8.5-10.1) Total Bilirubin 1.2 mg/dL (0.2-1.0) Aspartate Amino Transf (AST/SGOT) 32 U/L (15-37) Alanine Aminotransferase (ALT/SGPT) 14 U/L (14-59) Alkaline Phosphatase 125 U/L (46-116) Total Protein 6.9 g/dL (6.4-8.2) Albumin 2.9 g/dL (3.4-5.0) Albumin/Globulin Ratio 0.7 (1.0-1.7) Lipase 212 U/L (73-393) Bedside Urine HCG, Qualitative Hcg negative (Negative) Urine Collection Type Void Urine Color Neisha Urine Clarity Clear Urine pH 6.5 Urine Specific [place] 1.015 Urine Protein 30 mg/dL (NEG-TRACE) Urine Glucose (UA) Negative mg/dL (NEG) Urine Ketones (Stick) Negative mg/dL (NEG) Urine Blood Large (NEG) Urine Nitrite Negative (NEG) Urine Bilirubin Negative (NEG) Urine Urobilinogen Dipstick 0.2 mg/dL (0.2 mg/dL) Urine Leukocyte Esterase Trace (NEG) Urine RBC >40 /HPF (0-2) Urine WBC 11-20 /HPF (0-4) Urine Squamous Epithelial Cells Few /LPF Urine Bacteria Few /HPF (0-FEW) Urine Hyaline Casts Occasional /HPF Urine Mucus Mod /LPF Lactic Acid Level 5.3 mmol/L (0.4-2.0) Test 04/23/17 04:27 04/23/17 10:14 04/23/17 11:50 8/5/17 12:45 Glucose (Fingerstick) 94 mg/dL (70-99) 126 mg/dL (70-99) Lactic Acid Level 7.8 mmol/L (0.4-2.0) O2 Saturation 98 % (92-99) Arterial Blood pH 7.19 (7.35-7.45) Arterial Blood pCO2 at Patient Temp 30 mmHg (35-46) Arterial Blood pO2 at Patient Temp 137 mmHg (75-108) Arterial Blood HCO3 11 mmol/L (21-28) Arterial Blood Base Excess -16 mmol/L (-3-3) FiO2 40 Test 04/23/17 13:44 04/23/17 17:01 04/23/17 20:19 04/24/17 04:00 Glucose (Fingerstick) 150 mg/dL (70-99) 177 mg/dL (70-99) 208 mg/dL (70-99) White Blood Count 21.3 x10^3/uL (4.0-11.0) Red Blood Count 3.02 x10^6/uL (3.50-5.40) Hemoglobin 9.4 g/dL (12.0-15.5) Hematocrit 28.7 % (36.0-47.0) Mean Corpuscular Volume 95 fL (79-100) Mean Corpuscular Hemoglobin 31 pg (25-35) Mean Corpuscular Hemoglobin Concent 33 g/dL (31-37) Red Cell Distribution Width 14.6 % (11.5-14.5) Platelet Count 84 x10^3/uL (140-400) Neutrophils (%) (Auto) 85 % (31-73) Lymphocytes (%) (Auto) 6 % (24-48) Monocytes (%) (Auto) 9 % (0-9) Eosinophils (%) (Auto) 1 % (0-3) Basophils (%) (Auto) 0 % (0-3) Neutrophils # (Auto) 18.0 x10^3uL (1.8-7.7) Lymphocytes # (Auto) 1.2 x10^3/uL (1.0-4.8) Monocytes # (Auto) 1.8 x10^3/uL (0.0-1.1) Eosinophils # (Auto) 0.2 x10^3/uL (0.0-0.7) Basophils # (Auto) 0.0 x10^3/uL (0.0-0.2) Segmented Neutrophils % 52 % (35-66) Band Neutrophils % 27 % (0-9) Lymphocytes % 7 % (24-48) Monocytes % 9 % (0-10) Metamyelocytes % 5 % (0-0) Platelet Estimate Decreased (ADEQUATE) Sodium Level 141 mmol/L (136-145) Potassium Level 3.8 mmol/L (3.5-5.1) Chloride Level 107 mmol/L (98-107) Carbon Dioxide Level 23 mmol/L (21-32) Anion Gap 11 (6-14) Blood Urea Nitrogen 16 mg/dL (7-20) Creatinine 1.2 mg/dL (0.6-1.0) Estimated GFR (Cockcroft-Gault) 49.0 Glucose Level 215 mg/dL (70-99) Calcium Level 6.5 mg/dL (8.5-10.1) Test 04/24/17 07:23 Glucose (Fingerstick) 187 mg/dL (70-99) Laboratory Tests Test 04/23/17 10:14 04/23/17 11:50 04/23/17 12:45 04/23/17 13:44 Glucose (Fingerstick) 126 mg/dL (70-99) 150 mg/dL (70-99) Lactic Acid Level 7.8 mmol/L (0.4-2.0) O2 Saturation 98 % (92-99) Arterial Blood pH 7.19 (7.35-7.45) Arterial Blood pCO2 at Patient Temp 30 mmHg (35-46) Arterial Blood pO2 at Patient Temp 137 mmHg (75-108) Arterial Blood HCO3 11 mmol/L (21-28) Arterial Blood Base Excess -16 mmol/L (-3-3) FiO2 40 Test 04/23/17 17:01 04/23/17 20:19 04/24/17 04:00 04/24/17 07:23 Glucose (Fingerstick) 177 mg/dL (70-99) 208 mg/dL (70-99) 187 mg/dL (70-99) White Blood Count 21.3 x10^3/uL (4.0-11.0) Red Blood Count 3.02 x10^6/uL (3.50-5.40) Hemoglobin 9.4 g/dL (12.0-15.5) Hematocrit 28.7 % (36.0-47.0) Mean Corpuscular Volume 95 fL (79-100) Mean Corpuscular Hemoglobin 31 pg (25-35) Mean Corpuscular Hemoglobin Concent 33 g/dL (31-37) Red Cell Distribution Width 14.6 % (11.5-14.5) Platelet Count 84 x10^3/uL (140-400) Neutrophils (%) (Auto) 85 % (31-73) Lymphocytes (%) (Auto) 6 % (24-48) Monocytes (%) (Auto) 9 % (0-9) Eosinophils (%) (Auto) 1 % (0-3) Basophils (%) (Auto) 0 % (0-3) Neutrophils # (Auto) 18.0 x10^3uL (1.8-7.7) Lymphocytes # (Auto) 1.2 x10^3/uL (1.0-4.8) Monocytes # (Auto) 1.8 x10^3/uL (0.0-1.1) Eosinophils # (Auto) 0.2 x10^3/uL (0.0-0.7) Basophils # (Auto) 0.0 x10^3/uL (0.0-0.2) Segmented Neutrophils % 52 % (35-66) Band Neutrophils % 27 % (0-9) Lymphocytes % 7 % (24-48) Monocytes % 9 % (0-10) Metamyelocytes % 5 % (0-0) Platelet Estimate Decreased (ADEQUATE) Sodium Level 141 mmol/L (136-145) Potassium Level 3.8 mmol/L (3.5-5.1) Chloride Level 107 mmol/L (98-107) Carbon Dioxide Level 23 mmol/L (21-32) Anion Gap 11 (6-14) Blood Urea Nitrogen 16 mg/dL (7-20) Creatinine 1.2 mg/dL (0.6-1.0) Estimated GFR (Cockcroft-Gault) 49.0 Glucose Level 215 mg/dL (70-99) Calcium Level 6.5 mg/dL (8.5-10.1) Medications Active Scripts Medications Dose Route/Sig Max Daily Dose Days Date Category Sprintec (Norgestimate-Ethinyl Estradiol) 1 Each Tablet 1 Tab PO DAILY 04/23/17 Reported Iron (Ferrous Sulfate) 325 Mg Tablet 325 Mg PO [id number] 04/23/17 Reported Levothyroxine Sodium 200 Mcg Tablet 200 Mcg PO DAILYAC 04/23/17 Reported Metformin Hcl 1,000 Mg Tablet 1,000 Mg PO BIDWMEALS 04/23/17 Reported Lisinopril-Hctz 10-12.5 Mg Tab (Lisinopril/Hydrochlorothiazide) 1 Each Tablet 1 Tab PO DAILY 04/23/17 Reported Impression . RESP FAILURE MULTIFACTORIAL CONSULT DICTATED ACUTE APPENDICITIS S/P LAP APPY SEPSIS SEC TO ABOVE D/C NAHCO3 IV FLUIDS BIPAP PRN ANITBX D/W RN THANKS MAKAYLA GODOY MD Apr 24, 2017 07:52
--- NOTE | 2017-04-24 09:25 | CONS ---
DATE OF CONSULTATION: 04/24/2017 ATTENDING PHYSICIAN: Dr. Danitza Ramos. DICTATION PHYSICIAN: Dr. Godoy. REASON FOR CONSULTATION: The patient is seen in pulmonary consultation at the request of Dr. Ramos for acute respiratory distress, metabolic acidosis. HISTORY OF PRESENT ILLNESS: The patient is a morbid obese individual who presented with acute abdominal pain, was found to have acute appendicitis was initiated on antibiotics, underwent surgical intervention yesterday and had a laparoscopic appendectomy. The patient subsequent to her surgery was having some respiratory distress. An arterial blood gas was obtained. I was called with a blood gas revealed a pH of 7.19, PaCO2 of 30, paO2 of 137. The patient was placed on BiPAP. I started her on IV bicarbonate drip. This morning, she is awake, alert, off of BiPAP. No oxygen supplementation. Her white count was elevated. Electrolytes were noted. She is currently receiving IV antibiotics. The patient has never smoked, does not wear oxygen at home. PAST MEDICAL HISTORY: Otherwise remarkable for hypertension, diabetes, obesity. FAMILY HISTORY: Diabetes. REVIEW OF SYSTEMS: As indicated above, otherwise, a 10-point system was reviewed and negative. ALLERGIES: No known drug allergies. PHYSICAL EXAMINATION: GENERAL: The patient was in no respiratory distress. VITAL SIGNS: Stable, no oxygen supplementation, off of BiPAP. NECK: Jugular venous distention could not be assessed secondary to body habitus. LUNGS: Clear. No wheezes. CARDIOVASCULAR: Regular rate and rhythm with S1, S2, no S3. ABDOMEN: Soft, slight tenderness. EXTREMITIES: No clubbing, cyanosis or edema. NEUROLOGIC: The patient was awake, alert, following commands. A detailed neuro exam was not performed. LABORATORY DATA: Reviewed. CT of the abdomen and pelvis, lung bases were clear. IMPRESSION: 1. Acute respiratory distress ____, status post surgery, expected. 2. Severe metabolic acidosis secondary to appendicitis and sepsis. 3. Morbid obesity. 4. Leukocytosis. 5. Possible urinary tract infection PLAN: 1. Overall, the patient has improved. 2. We will continue current postop care. 3. Advance diet per surgeon. 4. Discontinue sodium bicarbonate. 5. P.r.n. BiPAP. I do appreciate the privilege in sharing in the patient's care. MAKAYLA GODOY MD DR: SHAHZAD/nicki JOB#: [id number] / [id number]
--- NOTE | 2017-04-24 09:30 | PDOC ---
PROGRESS NOTES Chief Complaint Chief Complaint acute abd pain acute appendicitis, w/ peritonitis described now POD #1, appy sepsis, severe sepsis with lactate yesterday, improved morbid obesity, BMI 48 w hypokalemia Dm2, poor control htn History of Present Illness History of Present Illness transfer out of ICU to floor PO intake adat cont current pain better Vitals Vitals Vital Signs Date Time Temp Pulse Resp B/P (MAP) Pulse Ox O2 Delivery O2 Flow Rate FiO2 04/24/17 08:53 87 18 111/58 (75) 96 Room Air 04/24/17 06:18 97.7 97.7 04/23/17 20:01 10.0 Physical Exam General: Alert, Oriented X3, mild distress Heart: Regular rate Abdomen: Normal bowel sounds, Soft (tender, RLQ, very obese, some guarding, ) Extremities: No cyanosis, No edema Skin: No breakdown Labs LABS Laboratory Tests Test 04/23/17 10:14 04/23/17 11:50 04/23/17 12:45 04/23/17 13:44 Glucose (Fingerstick) 126 mg/dL (70-99) 150 mg/dL (70-99) Lactic Acid Level 7.8 mmol/L (0.4-2.0) O2 Saturation 98 % (92-99) Arterial Blood pH 7.19 (7.35-7.45) Arterial Blood pCO2 at Patient Temp 30 mmHg (35-46) Arterial Blood pO2 at Patient Temp 137 mmHg (75-108) Arterial Blood HCO3 11 mmol/L (21-28) Arterial Blood Base Excess -16 mmol/L (-3-3) FiO2 40 Test 04/23/17 17:01 04/23/17 20:19 04/24/17 04:00 04/24/17 07:23 Glucose (Fingerstick) 177 mg/dL (70-99) 208 mg/dL (70-99) 187 mg/dL (70-99) White Blood Count 21.3 x10^3/uL (4.0-11.0) Red Blood Count 3.02 x10^6/uL (3.50-5.40) Hemoglobin 9.4 g/dL (12.0-15.5) Hematocrit 28.7 % (36.0-47.0) Mean Corpuscular Volume 95 fL (79-100) Mean Corpuscular Hemoglobin 31 pg (25-35) Mean Corpuscular Hemoglobin Concent 33 g/dL (31-37) Red Cell Distribution Width 14.6 % (11.5-14.5) Platelet Count 84 x10^3/uL (140-400) Neutrophils (%) (Auto) 85 % (31-73) Lymphocytes (%) (Auto) 6 % (24-48) Monocytes (%) (Auto) 9 % (0-9) Eosinophils (%) (Auto) 1 % (0-3) Basophils (%) (Auto) 0 % (0-3) Neutrophils # (Auto) 18.0 x10^3uL (1.8-7.7) Lymphocytes # (Auto) 1.2 x10^3/uL (1.0-4.8) Monocytes # (Auto) 1.8 x10^3/uL (0.0-1.1) Eosinophils # (Auto) 0.2 x10^3/uL (0.0-0.7) Basophils # (Auto) 0.0 x10^3/uL (0.0-0.2) Segmented Neutrophils % 52 % (35-66) Band Neutrophils % 27 % (0-9) Lymphocytes % 7 % (24-48) Monocytes % 9 % (0-10) Metamyelocytes % 5 % (0-0) Platelet Estimate Decreased (ADEQUATE) Sodium Level 141 mmol/L (136-145) Potassium Level 3.8 mmol/L (3.5-5.1) Chloride Level 107 mmol/L (98-107) Carbon Dioxide Level 23 mmol/L (21-32) Anion Gap 11 (6-14) Blood Urea Nitrogen 16 mg/dL (7-20) Creatinine 1.2 mg/dL (0.6-1.0) Estimated GFR (Cockcroft-Gault) 49.0 Glucose Level 215 mg/dL (70-99) Calcium Level 6.5 mg/dL (8.5-10.1) Assessment and Plan Assessmemt and Plan Problems Medical Problems: (1) Acute appendicitis Status: Acute Problems: Comment Review of Relevant I have reviewed the following items jacque (where applicable) has been applied. Labs Laboratory Tests Test 04/22/17 21:36 04/22/17 22:08 04/22/17 22:59 04/23/17 04:17 White Blood Count 4.6 x10^3/uL (4.0-11.0) Red Blood Count 3.71 x10^6/uL (3.50-5.40) Hemoglobin 11.7 g/dL (12.0-15.5) Hematocrit 34.7 % (36.0-47.0) Mean Corpuscular Volume 93 fL (79-100) Mean Corpuscular Hemoglobin 32 pg (25-35) Mean Corpuscular Hemoglobin Concent 34 g/dL (31-37) Red Cell Distribution Width 13.8 % (11.5-14.5) Platelet Count 129 x10^3/uL (140-400) Neutrophils (%) (Auto) 79 % (31-73) Lymphocytes (%) (Auto) 18 % (24-48) Monocytes (%) (Auto) 1 % (0-9) Eosinophils (%) (Auto) 2 % (0-3) Basophils (%) (Auto) 0 % (0-3) Neutrophils # (Auto) 3.6 x10^3uL (1.8-7.7) Lymphocytes # (Auto) 0.8 x10^3/uL (1.0-4.8) Monocytes # (Auto) 0.0 x10^3/uL (0.0-1.1) Eosinophils # (Auto) 0.1 x10^3/uL (0.0-0.7) Basophils # (Auto) 0.0 x10^3/uL (0.0-0.2) Segmented Neutrophils % 52 % (35-66) Band Neutrophils % 20 % (0-9) Lymphocytes % 23 % (24-48) Monocytes % 1 % (0-10) Eosinophils % 2 % (0-5) Metamyelocytes % 1 % (0-0) Myelocytes % 1 % (0-0) Nucleated Red Blood Cells 1 Platelet Estimate Adequate (ADEQUATE) Sodium Level 141 mmol/L (136-145) Potassium Level 3.3 mmol/L (3.5-5.1) Chloride Level 107 mmol/L (98-107) Carbon Dioxide Level 20 mmol/L (21-32) Anion Gap 14 (6-14) Blood Urea Nitrogen 6 mg/dL (7-20) Creatinine 0.8 mg/dL (0.6-1.0) Estimated GFR (Cockcroft-Gault) 78.3 BUN/Creatinine Ratio 8 (6-20) Glucose Level 112 mg/dL (70-99) Calcium Level 8.2 mg/dL (8.5-10.1) Total Bilirubin 1.2 mg/dL (0.2-1.0) Aspartate Amino Transf (AST/SGOT) 32 U/L (15-37) Alanine Aminotransferase (ALT/SGPT) 14 U/L (14-59) Alkaline Phosphatase 125 U/L (46-116) Total Protein 6.9 g/dL (6.4-8.2) Albumin 2.9 g/dL (3.4-5.0) Albumin/Globulin Ratio 0.7 (1.0-1.7) Lipase 212 U/L (73-393) Bedside Urine HCG, Qualitative Hcg negative (Negative) Urine Collection Type Void Urine Color Neisha Urine Clarity Clear Urine pH 6.5 Urine Specific Jacobson 1.015 Urine Protein 30 mg/dL (NEG-TRACE) Urine Glucose (UA) Negative mg/dL (NEG) Urine Ketones (Stick) Negative mg/dL (NEG) Urine Blood Large (NEG) Urine Nitrite Negative (NEG) Urine Bilirubin Negative (NEG) Urine Urobilinogen Dipstick 0.2 mg/dL (0.2 mg/dL) Urine Leukocyte Esterase Trace (NEG) Urine RBC >40 /HPF (0-2) Urine WBC 11-20 /HPF (0-4) Urine Squamous Epithelial Cells Few /LPF Urine Bacteria Few /HPF (0-FEW) Urine Hyaline Casts Occasional /HPF Urine Mucus Mod /LPF Lactic Acid Level 5.3 mmol/L (0.4-2.0) Test 04/23/17 04:27 04/23/17 10:14 04/23/17 11:50 04/23/17 12:45 Glucose (Fingerstick) 94 mg/dL (70-99) 126 mg/dL (70-99) Lactic Acid Level 7.8 mmol/L (0.4-2.0) O2 Saturation 98 % (92-99) Arterial Blood pH 7.19 (7.35-7.45) Arterial Blood pCO2 at Patient Temp 30 mmHg (35-46) Arterial Blood pO2 at Patient Temp 137 mmHg (75-108) Arterial Blood HCO3 11 mmol/L (21-28) Arterial Blood Base Excess -16 mmol/L (-3-3) FiO2 40 Test 04/23/17 13:44 04/23/17 17:01 04/23/17 20:19 04/24/17 04:00 Glucose (Fingerstick) 150 mg/dL (70-99) 177 mg/dL (70-99) 208 mg/dL (70-99) White Blood Count 21.3 x10^3/uL (4.0-11.0) Red Blood Count 3.02 x10^6/uL (3.50-5.40) Hemoglobin 9.4 g/dL (12.0-15.5) Hematocrit 28.7 % (36.0-47.0) Mean Corpuscular Volume 95 fL (79-100) Mean Corpuscular Hemoglobin 31 pg (25-35) Mean Corpuscular Hemoglobin Concent 33 g/dL (31-37) Red Cell Distribution Width 14.6 % (11.5-14.5) Platelet Count 84 x10^3/uL (140-400) Neutrophils (%) (Auto) 85 % (31-73) Lymphocytes (%) (Auto) 6 % (24-48) Monocytes (%) (Auto) 9 % (0-9) Eosinophils (%) (Auto) 1 % (0-3) Basophils (%) (Auto) 0 % (0-3) Neutrophils # (Auto) 18.0 x10^3uL (1.8-7.7) Lymphocytes # (Auto) 1.2 x10^3/uL (1.0-4.8) Monocytes # (Auto) 1.8 x10^3/uL (0.0-1.1) Eosinophils # (Auto) 0.2 x10^3/uL (0.0-0.7) Basophils # (Auto) 0.0 x10^3/uL (0.0-0.2) Segmented Neutrophils % 52 % (35-66) Band Neutrophils % 27 % (0-9) Lymphocytes % 7 % (24-48) Monocytes % 9 % (0-10) Metamyelocytes % 5 % (0-0) Platelet Estimate Decreased (ADEQUATE) Sodium Level 141 mmol/L (136-145) Potassium Level 3.8 mmol/L (3.5-5.1) Chloride Level 107 mmol/L (98-107) Carbon Dioxide Level 23 mmol/L (21-32) Anion Gap 11 (6-14) Blood Urea Nitrogen 16 mg/dL (7-20) Creatinine 1.2 mg/dL (0.6-1.0) Estimated GFR (Cockcroft-Gault) 49.0 Glucose Level 215 mg/dL (70-99) Calcium Level 6.5 mg/dL (8.5-10.1) Test 04/24/17 07:23 Glucose (Fingerstick) 187 mg/dL (70-99) Laboratory Tests Test 04/23/17 10:14 04/23/17 11:50 04/23/17 12:45 04/23/17 13:44 Glucose (Fingerstick) 126 mg/dL (70-99) 150 mg/dL (70-99) Lactic Acid Level 7.8 mmol/L (0.4-2.0) O2 Saturation 98 % (92-99) Arterial Blood pH 7.19 (7.35-7.45) Arterial Blood pCO2 at Patient Temp 30 mmHg (35-46) Arterial Blood pO2 at Patient Temp 137 mmHg (75-108) Arterial Blood HCO3 11 mmol/L (21-28) Arterial Blood Base Excess -16 mmol/L (-3-3) FiO2 40 Test 04/23/17 17:01 04/23/17 20:19 04/24/17 04:00 04/24/17 07:23 Glucose (Fingerstick) 177 mg/dL (70-99) 208 mg/dL (70-99) 187 mg/dL (70-99) White Blood Count 21.3 x10^3/uL (4.0-11.0) Red Blood Count 3.02 x10^6/uL (3.50-5.40) Hemoglobin 9.4 g/dL (12.0-15.5) Hematocrit 28.7 % (36.0-47.0) Mean Corpuscular Volume 95 fL (79-100) Mean Corpuscular Hemoglobin 31 pg (25-35) Mean Corpuscular Hemoglobin Concent 33 g/dL (31-37) Red Cell Distribution Width 14.6 % (11.5-14.5) Platelet Count 84 x10^3/uL (140-400) Neutrophils (%) (Auto) 85 % (31-73) Lymphocytes (%) (Auto) 6 % (24-48) Monocytes (%) (Auto) 9 % (0-9) Eosinophils (%) (Auto) 1 % (0-3) Basophils (%) (Auto) 0 % (0-3) Neutrophils # (Auto) 18.0 x10^3uL (1.8-7.7) Lymphocytes # (Auto) 1.2 x10^3/uL (1.0-4.8) Monocytes # (Auto) 1.8 x10^3/uL (0.0-1.1) Eosinophils # (Auto) 0.2 x10^3/uL (0.0-0.7) Basophils # (Auto) 0.0 x10^3/uL (0.0-0.2) Segmented Neutrophils % 52 % (35-66) Band Neutrophils % 27 % (0-9) Lymphocytes % 7 % (24-48) Monocytes % 9 % (0-10) Metamyelocytes % 5 % (0-0) Platelet Estimate Decreased (ADEQUATE) Sodium Level 141 mmol/L (136-145) Potassium Level 3.8 mmol/L (3.5-5.1) Chloride Level 107 mmol/L (98-107) Carbon Dioxide Level 23 mmol/L (21-32) Anion Gap 11 (6-14) Blood Urea Nitrogen 16 mg/dL (7-20) Creatinine 1.2 mg/dL (0.6-1.0) Estimated GFR (Cockcroft-Gault) 49.0 Glucose Level 215 mg/dL (70-99) Calcium Level 6.5 mg/dL (8.5-10.1) Microbiology 04/22/17 Urine Culture - Preliminary, Resulted 04/22/17 Urine Culture Result 1 (SAROJ) - Preliminary, Resulted Medications Current Medications Sodium Chloride 1,000 ml @ 1,000 mls/hr 1X ONCE IV Last administered on 21:56; Start 04/22/17 at 22:00; Stop 04/22/17 at 22:59; Status DC Ondansetron HCl (Zofran) 4 mg 1X ONCE IV Last administered on 04/22/17 21:56; Start 04/22/17 at 22:00; Stop 04/22/17 at 22:01; Status DC Fentanyl Citrate (Fentanyl 2ml Vial) 50 mcg 1X ONCE IV Last administered on 21:57; Start 04/22/17 at 22:00; Stop 04/22/17 at 22:01; Status DC Iohexol (Omnipaque 300 Mg/ml) 75 ml STK-MED ONCE .ROUTE ; Start 04/22/17 at 23:01 ; Stop 04/22/17 at 23:02; Status DC Piperacillin Sod/ Tazobactam Sod 4.5 gm/Sodium Chloride 100 ml @ 200 mls/hr 1X ONCE IV Last administered on 04/23/17 00:50; Start 04/23/17 at 01:00; Stop 04/23/17 at 01:29; Status DC Ondansetron HCl (Zofran) 4 mg PRN Q8HRS PRN IV NAUSEA/VOMITING; Start 04/23/17 at 00:30; Stop 04/24/17 at 00:29; Status DC Morphine Sulfate 4 mg PRN Q2HR PRN IV SEVERE PAIN Last administered on 15:41; Start 04/23/17 at 00:30; Stop 04/24/17 at 00:29; Status DC Sodium Chloride 1,000 ml @ 100 mls/hr Q10H IV Last administered on 04/23/17 15 :49; Start 04/23/17 at 00:30; Stop 04/24/17 at 00:29; Status DC Acetaminophen (Tylenol) 650 mg PRN Q4HRS PRN PO FEVER; Start 04/23/17 at 00:30; Stop 04/24/17 at 00:29; Status DC Sodium Chloride 1,000 ml @ 1,000 mls/hr 1X ONCE IV Last administered on 02:03; Start 04/23/17 at 02:00; Stop 04/23/17 at 02:59; Status DC Naloxone HCl (Narcan) 0.4 mg STK-MED ONCE .ROUTE ; Start 04/23/17 at 02:27; Stop 04/23/17 at 02:28; Status DC Naloxone HCl (Narcan) 0.2 mg 1X ONCE IV Last administered on 04/23/17 02:43; Start 04/23/17 at 02:45; Stop 04/23/17 at 02:47; Status DC Sodium Chloride 1,000 ml @ 1,000 mls/hr 1X ONCE IV Last administered on 03:52; Start 04/23/17 at 04:00; Stop 04/23/17 at 04:59; Status DC Norepinephrine Bitartrate 250 ml @ 0 mls/hr CONT PRN IV SEE I/O RECORD Last administered on 04/23/17 08:05; Start 04/23/17 at 04:45 Levothyroxine Sodium (Synthroid) 200 mcg DAILY07 PO Last administered on 06:13; Start 04/23/17 at 07:00 Sodium Chloride 1,000 ml @ 1,000 mls/hr 1X ONCE IV Last administered on 05:41; Start 04/23/17 at 06:00; Stop 04/23/17 at 06:59; Status DC Bupivacaine HCl/ Epinephrine Bitart (Sensorcain-Mpf Epi 0.5%-[id number]) 30 ml STK -MED ONCE .ROUTE Last administered on 04/23/17 08:58; Start 04/23/17 at 07:29; Stop 04/23/17 at 07:30; Status DC Sodium Chloride 500 ml @ 500 mls/hr 1X ONCE IV Last administered on 04/23/17 07:40; Start 04/23/17 at 07:45; Stop 04/23/17 at 08:44; Status DC Piperacillin Sod/ Tazobactam Sod 4.5 gm/Sodium Chloride 100 ml @ 200 mls/hr Q6HRS IV ; Start 04/23/17 at 12:00; Status UNV Piperacillin Sod/ Tazobactam Sod 3.375 gm/Sodium Chloride 50 ml @ 100 mls/hr Q6HRS IV Last administered on 04/24/17 06:14; Start 04/23/17 at 08:00 Dexamethasone Sodium Phosphate (Decadron) 20 mg STK-MED ONCE .ROUTE ; Start 04/23 at 08:07; Stop 04/23/17 at 08:08; Status DC Ondansetron HCl (Zofran) 4 mg STK-MED ONCE .ROUTE ; Start 04/23/17 at 08:07; Stop 04/23/17 at 08:08; Status DC Propofol 20 ml @ As Directed STK-MED ONCE IV ; Start 04/23/17 at 08:07; Stop 04/23 at 08:08; Status DC Lidocaine HCl (Lidocaine Pf 2% Vial) 5 ml STK-MED ONCE .ROUTE ; Start 04/23/17 at 08:07; Stop 04/23/17 at 08:08; Status DC Fentanyl Citrate (Fentanyl 2ml Vial) 100 mcg STK-MED ONCE .ROUTE ; Start at 08:07; Stop 04/23/17 at 08:08; Status DC Rocuronium [place] (Zemuron) 100 mg STK-MED ONCE .ROUTE ; Start 04/23/17 at 08:07 ; Stop 04/23/17 at 08:08; Status DC Succinylcholine Chloride (Anectine) 200 mg STK-MED ONCE .ROUTE ; Start 04/23/17 at 08:07; Stop 04/23/17 at 08:08; Status DC Ondansetron HCl (Zofran) 4 mg PRN Q6HRS PRN IV NAUSEA/VOMITING; Start 04/23/17 at 08:15; Stop 04/24/17 at 08:14; Status DC Fentanyl Citrate (Fentanyl 2ml Vial) 25 mcg PRN Q5MIN PRN IV MILD PAIN; Start 04/23/17 at 08:15; Stop 04/24/17 at 08:14; Status DC Fentanyl Citrate (Fentanyl 2ml Vial) 50 mcg PRN Q5MIN PRN IV MODERATE PAIN; Start 04/23/17 at 08:15; Stop 04/24/17 at 08:14; Status DC Morphine Sulfate 1 mg PRN Q10MIN PRN IV SEVERE PAIN; Start 04/23/17 at 08:15; Stop 04/24/17 at 08:14; Status DC Ringer's Solution 1,000 ml @ 30 mls/hr Q24H IV ; Start 04/23/17 at 08:15; Stop 04/23/17 at 14:38; Status DC Lidocaine HCl 2 ml PRN 1X PRN ID PRIOR TO IV START; Start 04/23/17 at 08:15; Stop 04/24/17 at 08:14; Status DC Hydromorphone HCl (Dilaudid) 0.5 mg PRN Q10MIN PRN IV SEV PAIN, Second choice; Start 04/23/17 at 08:15; Stop 04/24/17 at 08:14; Status DC Prochlorperazine Edisylate (Compazine) 5 mg PACU PRN PRN IV NAUSEA, MRX1; Start 04/23/17 at 08:15; Stop 04/24/17 at 08:14; Status DC Ketamine HCl 500 mg STK-MED ONCE .ROUTE ; Start 04/23/17 at 08:34; Stop 04/23/17 at 08:35; Status DC Glycopyrrolate (Robinul) 1 mg STK-MED ONCE .ROUTE ; Start 04/23/17 at 08:40; Stop 04/23/17 at 08:41; Status DC Insulin Aspart (NovoLOG) 0-9 UNITS QIDACHS SQ Last administered on 04/24/17 07: 52; Start 04/23/17 at 11:30 Dextrose (Dextrose 50%-Water Syringe) 12.5 gm PRN Q15MIN PRN IV SEE COMMENTS; Start 04/23/17 at 09:15 Potassium Chloride 100 ml @ 100 mls/hr Q1H IV Last administered on 04/23/17 15 :12; Start 04/23/17 at 10:00; Stop 04/23/17 at 11:59; Status DC Neostigmine Methylsulfate (Bloxiverz) 10 mg STK-MED ONCE .ROUTE ; Start 04/23/17 at 09:39; Stop 04/23/17 at 09:40; Status DC Oxycodone/ Acetaminophen (Percocet 5/325) 1 tab PRN Q4HRS PRN PO MILD PAIN Last administered on 04/23/17 22:06; Start 04/23/17 at 10:30 Oxycodone/ Acetaminophen (Percocet 5/325) 2 tab PRN Q4HRS PRN PO MODERATE PAIN , SEVERE PAIN; Start 04/23/17 at 10:30 Neostigmine Methylsulfate (Bloxiverz) 10 mg STK-MED ONCE .ROUTE ; Start 04/23/17 at 10:29; Stop 04/23/17 at 10:30; Status DC Sodium Chloride 1,000 ml @ 1,000 mls/hr 1X ONCE IV Last administered on 12:36; Start 04/23/17 at 12:30; Stop 04/23/17 at 13:29; Status DC Sodium Chloride 1,000 ml @ 1,000 mls/hr 1X ONCE IV Last administered on 13:47; Start 04/23/17 at 12:45; Stop 04/23/17 at 13:44; Status DC Sodium Bicarbonate 150 meq/Dextrose 1,150 ml @ 100 mls/hr [id number] IV Last administered on 04/24/17 01:59; Start 04/23/17 at 14:30; Stop 04/24/17 at 07:50; Status DC Sodium Chloride 1,000 ml @ 2,000 mls/hr 1X ONCE IV Last administered on 14:36; Start 04/23/17 at 14:30; Stop 04/23/17 at 14:59; Status DC Active Scripts Active Reported Sprintec (Norgestimate-Ethinyl Estradiol) 1 Each Tablet 1 Tab PO DAILY Iron (Ferrous Sulfate) 325 Mg Tablet 325 Mg PO [id number] Levothyroxine Sodium 200 Mcg Tablet 200 Mcg PO DAILYAC Metformin Hcl 1,000 Mg Tablet 1,000 Mg PO [id number] Lisinopril-Hctz 10-12.5 Mg Tab (Lisinopril/Hydrochlorothiazide) 1 Each Tablet 1 Tab PO DAILY Vitals/I & O Vital Sign - Last 24 Hours 04/23/17 04/23/17 04/23/17 04/23/17 10:10 10:20 10:25 10:25 Temp 98.3 98.3 Pulse 112 116 116 Resp 40 36 36 B/P (MAP) 130/85 127/100 Pulse Ox 91 90 90 O2 Delivery Simple Mask Simple Mask Simple Mask Mask O2 Flow Rate 10 10 10 10 04/23/17 04/23/17 04/23/17 04/23/17 10:30 10:40 10:55 11:10 Temp 97.3 97.3 Pulse 120 106 100 Resp 32 32 18 B/P (MAP) 156/86 151/88 116/60 (78) Pulse Ox 90 92 97 98 O2 Delivery Simple Mask Simple Mask BiPAP/CPAP BiPAP/CPAP O2 Flow Rate 10 10 04/23/17 04/23/17 04/23/17 04/23/17 11:12 11:17 11:32 12:05 Temp 97.3 98.6 97.3 98.6 Pulse 100 99 98 Resp 18 18 B/P (MAP) 116/60 (78) 110/46 (67) 96/42 (60) Pulse Ox 99 99 O2 Delivery BiPAP/CPAP Bi-pap BiPAP/CPAP 04/23/17 04/23/17 04/23/17 04/23/17 12:07 12:32 13:00 13:50 Temp 98.0 99.0 98.0 99.0 Pulse 100 98 Resp 18 18 B/P (MAP) 85/42 (56) 102/42 (62) Pulse Ox 100 100 O2 Delivery Bi-pap BiPAP/CPAP BiPAP/CPAP BiPAP/CPAP 04/23/17 04/23/17 04/23/17 04/23/17 14:38 15:14 15:41 15:48 Temp 99.2 99.2 Pulse 100 103 Resp 18 18 26 B/P (MAP) 88/48 (61) 102/40 (60) Pulse Ox 100 100 100 100 O2 Delivery BiPAP/CPAP BiPAP/CPAP BiPAP/CPAP BiPAP/CPAP 04/23/17 04/23/17 04/23/17 04/23/17 15:53 16:00 17:04 18:01 Temp 99.2 99.1 98.6 99.2 99.1 98.6 Pulse 106 100 105 Resp 18 18 18 B/P (MAP) 102/53 (69) 84/50 (61) 100/52 (68) Pulse Ox 100 99 97 O2 Delivery BiPAP/CPAP Bi-pap BiPAP/CPAP Room Air 04/23/17 04/23/17 04/23/17 04/23/17 19:00 20:01 20:33 21:00 Temp 98.6 98.7 98.6 98.7 Pulse 104 100 100 B/P (MAP) 98/54 (69) 100/52 (68) 100/54 (69) Pulse Ox 97 97 97 O2 Delivery Room Air Bi-pap Room Air Room Air O2 Flow Rate 10.0 04/23/17 04/23/17 04/23/17 04/23/17 22:06 22:07 23:05 23:43 Temp 98.6 98.6 Pulse 106 107 B/P (MAP) 98/50 (66) 92/61 (71) Pulse Ox 97 98 97 O2 Delivery Room Air Room Air Room Air Room Air 04/24/17 04/24/17 04/24/17 04/24/17 00:06 00:12 01:00 01:57 Temp 98.6 98.6 Pulse 106 98 98 B/P (MAP) 104/48 (66) 108/52 (70) 108/55 (72) Pulse Ox 93 96 95 O2 Delivery Room Air Room Air Room Air Room Air 04/24/17 04/24/17 04/24/17 04/24/17 03:07 04:01 04:04 05:11 Pulse 106 89 95 B/P (MAP) 104/60 (75) 119/58 (78) 111/61 (78) Pulse Ox 98 95 97 O2 Delivery Room Air Room Air Room Air Room Air 04/24/17 04/24/17 04/24/17 04/24/17 06:18 07:00 07:30 07:52 Temp 97.7 97.7 Pulse 90 88 87 Resp 18 B/P (MAP) 111/51 (71) 99/48 (65) 98/45 (62) Pulse Ox 97 94 98 O2 Delivery Room Air Room Air Room Air Room Air 04/24/17 08:53 Pulse 87 Resp 18 B/P (MAP) 111/58 (75) Pulse Ox 96 O2 Delivery Room Air Intake and Output 04/23/17 04/23/17 04/24/17 15:00 23:00 07:00 Intake Total 3000 ml 1110 ml 1220 ml Output Total 620 ml 795 ml Balance 3000 ml 490 ml 425 ml JAC BLUE MD Apr 24, 2017 09:30
--- NOTE | 2017-04-24 10:49 | PDOC ---
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 04/24/17 1049: SURGICAL PROGRESS NOTE Subjective tolerating diet incisional/gas pains no nausea or emesis Vital Signs Vital Signs Date Time Temp Pulse Resp B/P (MAP) Pulse Ox O2 Delivery O2 Flow Rate FiO2 04/24/17 08:53 87 18 111/58 (75) 96 Room Air 04/24/17 06:18 97.7 97.7 04/23/17 20:01 10.0 I&O Intake and Output 04/24/17 07:00 Intake Total 5330 ml Output Total 1415 ml Balance 3915 ml Intake Oral 780 ml IV Total 950 ml Blood Product IV Normal Saline Flush 2100 ml Other 1500 ml Output Urine Total 1415 ml General: Alert, Oriented X3, Cooperative, No acute distress Abdomen: Soft, Other (ND, obese abdomen, lap site dressings dry ) Labs Laboratory Tests Test 04/22/17 21:36 04/22/17 22:08 04/22/17 22:59 04/23/17 04:17 White Blood Count 4.6 x10^3/uL (4.0-11.0) Red Blood Count 3.71 x10^6/uL (3.50-5.40) Hemoglobin 11.7 g/dL (12.0-15.5) Hematocrit 34.7 % (36.0-47.0) Mean Corpuscular Volume 93 fL (79-100) Mean Corpuscular Hemoglobin 32 pg (25-35) Mean Corpuscular Hemoglobin Concent 34 g/dL (31-37) Red Cell Distribution Width 13.8 % (11.5-14.5) Platelet Count 129 x10^3/uL (140-400) Neutrophils (%) (Auto) 79 % (31-73) Lymphocytes (%) (Auto) 18 % (24-48) Monocytes (%) (Auto) 1 % (0-9) Eosinophils (%) (Auto) 2 % (0-3) Basophils (%) (Auto) 0 % (0-3) Neutrophils # (Auto) 3.6 x10^3uL (1.8-7.7) Lymphocytes # (Auto) 0.8 x10^3/uL (1.0-4.8) Monocytes # (Auto) 0.0 x10^3/uL (0.0-1.1) Eosinophils # (Auto) 0.1 x10^3/uL (0.0-0.7) Basophils # (Auto) 0.0 x10^3/uL (0.0-0.2) Segmented Neutrophils % 52 % (35-66) Band Neutrophils % 20 % (0-9) Lymphocytes % 23 % (24-48) Monocytes % 1 % (0-10) Eosinophils % 2 % (0-5) Metamyelocytes % 1 % (0-0) Myelocytes % 1 % (0-0) Nucleated Red Blood Cells 1 Platelet Estimate Adequate (ADEQUATE) Sodium Level 141 mmol/L (136-145) Potassium Level 3.3 mmol/L (3.5-5.1) Chloride Level 107 mmol/L (98-107) Carbon Dioxide Level 20 mmol/L (21-32) Anion Gap 14 (6-14) Blood Urea Nitrogen 6 mg/dL (7-20) Creatinine 0.8 mg/dL (0.6-1.0) Estimated GFR (Cockcroft-Gault) 78.3 BUN/Creatinine Ratio 8 (6-20) Glucose Level 112 mg/dL (70-99) Calcium Level 8.2 mg/dL (8.5-10.1) Total Bilirubin 1.2 mg/dL (0.2-1.0) Aspartate Amino Transf (AST/SGOT) 32 U/L (15-37) Alanine Aminotransferase (ALT/SGPT) 14 U/L (14-59) Alkaline Phosphatase 125 U/L (46-116) Total Protein 6.9 g/dL (6.4-8.2) Albumin 2.9 g/dL (3.4-5.0) Albumin/Globulin Ratio 0.7 (1.0-1.7) Lipase 212 U/L (73-393) Bedside Urine HCG, Qualitative Hcg negative (Negative) Urine Collection Type Void Urine Color Neisha Urine Clarity Clear Urine pH 6.5 Urine Specific [place] 1.015 Urine Protein 30 mg/dL (NEG-TRACE) Urine Glucose (UA) Negative mg/dL (NEG) Urine Ketones (Stick) Negative mg/dL (NEG) Urine Blood Large (NEG) Urine Nitrite Negative (NEG) Urine Bilirubin Negative (NEG) Urine Urobilinogen Dipstick 0.2 mg/dL (0.2 mg/dL) Urine Leukocyte Esterase Trace (NEG) Urine RBC >40 /HPF (0-2) Urine WBC 11-20 /HPF (0-4) Urine Squamous Epithelial Cells Few /LPF Urine Bacteria Few /HPF (0-FEW) Urine Hyaline Casts Occasional /HPF Urine Mucus Mod /LPF Lactic Acid Level 5.3 mmol/L (0.4-2.0) Test 04/23/17 04:27 04/23/17 10:14 04/23/17 11:50 04/23/17 12:45 Glucose (Fingerstick) 94 mg/dL (70-99) 126 mg/dL (70-99) Lactic Acid Level 7.8 mmol/L (0.4-2.0) O2 Saturation 98 % (92-99) Arterial Blood pH 7.19 (7.35-7.45) Arterial Blood pCO2 at Patient Temp 30 mmHg (35-46) Arterial Blood pO2 at Patient Temp 137 mmHg (75-108) Arterial Blood HCO3 11 mmol/L (21-28) Arterial Blood Base Excess -16 mmol/L (-3-3) FiO2 40 Test 04/23/17 13:44 04/23/17 17:01 04/23/17 20:19 04/24/17 04:00 Glucose (Fingerstick) 150 mg/dL (70-99) 177 mg/dL (70-99) 208 mg/dL (70-99) White Blood Count 21.3 x10^3/uL (4.0-11.0) Red Blood Count 3.02 x10^6/uL (3.50-5.40) Hemoglobin 9.4 g/dL (12.0-15.5) Hematocrit 28.7 % (36.0-47.0) Mean Corpuscular Volume 95 fL (79-100) Mean Corpuscular Hemoglobin 31 pg (25-35) Mean Corpuscular Hemoglobin Concent 33 g/dL (31-37) Red Cell Distribution Width 14.6 % (11.5-14.5) Platelet Count 84 x10^3/uL (140-400) Neutrophils (%) (Auto) 85 % (31-73) Lymphocytes (%) (Auto) 6 % (24-48) Monocytes (%) (Auto) 9 % (0-9) Eosinophils (%) (Auto) 1 % (0-3) Basophils (%) (Auto) 0 % (0-3) Neutrophils # (Auto) 18.0 x10^3uL (1.8-7.7) Lymphocytes # (Auto) 1.2 x10^3/uL (1.0-4.8) Monocytes # (Auto) 1.8 x10^3/uL (0.0-1.1) Eosinophils # (Auto) 0.2 x10^3/uL (0.0-0.7) Basophils # (Auto) 0.0 x10^3/uL (0.0-0.2) Segmented Neutrophils % 52 % (35-66) Band Neutrophils % 27 % (0-9) Lymphocytes % 7 % (24-48) Monocytes % 9 % (0-10) Metamyelocytes % 5 % (0-0) Platelet Estimate Decreased (ADEQUATE) Sodium Level 141 mmol/L (136-145) Potassium Level 3.8 mmol/L (3.5-5.1) Chloride Level 107 mmol/L (98-107) Carbon Dioxide Level 23 mmol/L (21-32) Anion Gap 11 (6-14) Blood Urea Nitrogen 16 mg/dL (7-20) Creatinine 1.2 mg/dL (0.6-1.0) Estimated GFR (Cockcroft-Gault) 49.0 Glucose Level 215 mg/dL (70-99) Calcium Level 6.5 mg/dL (8.5-10.1) Test 04/24/17 07:23 Glucose (Fingerstick) 187 mg/dL (70-99) Laboratory Tests Test 04/23/17 11:50 04/23/17 12:45 04/23/17 13:44 04/23/17 17:01 Lactic Acid Level 7.8 mmol/L (0.4-2.0) O2 Saturation 98 % (92-99) Arterial Blood pH 7.19 (7.35-7.45) Arterial Blood pCO2 at Patient Temp 30 mmHg (35-46) Arterial Blood pO2 at Patient Temp 137 mmHg (75-108) Arterial Blood HCO3 11 mmol/L (21-28) Arterial Blood Base Excess -16 mmol/L (-3-3) FiO2 40 Glucose (Fingerstick) 150 mg/dL (70-99) 177 mg/dL (70-99) Test 8/5/17 20:19 04/24/17 04:00 04/24/17 07:23 Glucose (Fingerstick) 208 mg/dL (70-99) 187 mg/dL (70-99) White Blood Count 21.3 x10^3/uL (4.0-11.0) Red Blood Count 3.02 x10^6/uL (3.50-5.40) Hemoglobin 9.4 g/dL (12.0-15.5) Hematocrit 28.7 % (36.0-47.0) Mean Corpuscular Volume 95 fL (79-100) Mean Corpuscular Hemoglobin 31 pg (25-35) Mean Corpuscular Hemoglobin Concent 33 g/dL (31-37) Red Cell Distribution Width 14.6 % (11.5-14.5) Platelet Count 84 x10^3/uL (140-400) Neutrophils (%) (Auto) 85 % (31-73) Lymphocytes (%) (Auto) 6 % (24-48) Monocytes (%) (Auto) 9 % (0-9) Eosinophils (%) (Auto) 1 % (0-3) Basophils (%) (Auto) 0 % (0-3) Neutrophils # (Auto) 18.0 x10^3uL (1.8-7.7) Lymphocytes # (Auto) 1.2 x10^3/uL (1.0-4.8) Monocytes # (Auto) 1.8 x10^3/uL (0.0-1.1) Eosinophils # (Auto) 0.2 x10^3/uL (0.0-0.7) Basophils # (Auto) 0.0 x10^3/uL (0.0-0.2) Segmented Neutrophils % 52 % (35-66) Band Neutrophils % 27 % (0-9) Lymphocytes % 7 % (24-48) Monocytes % 9 % (0-10) Metamyelocytes % 5 % (0-0) Platelet Estimate Decreased (ADEQUATE) Sodium Level 141 mmol/L (136-145) Potassium Level 3.8 mmol/L (3.5-5.1) Chloride Level 107 mmol/L (98-107) Carbon Dioxide Level 23 mmol/L (21-32) Anion Gap 11 (6-14) Blood Urea Nitrogen 16 mg/dL (7-20) Creatinine 1.2 mg/dL (0.6-1.0) Estimated GFR (Cockcroft-Gault) 49.0 Glucose Level 215 mg/dL (70-99) Calcium Level 6.5 mg/dL (8.5-10.1) Problem List Problems Medical Problems: (1) Acute appendicitis Status: Acute Assessment/Plan s/p lap appy resp failure, improved wbc 21.3, plts 84--hold any lovenox today with plts < 100 cbc in am increase activity, CAROLE henry when out of ICU Problems: MARIA FERNANDA WADE MD 04/24/17 1240: SURGICAL PROGRESS NOTE Assessment/Plan Agree with above Problems: ALDA SARABIA APRN Apr 24, 2017 10:49 MARIA FERNANDA WADE MD Apr 24, 2017 12:40
[2017-04-24] MEDS: oxyCODONE/APAP 5/325 1 TAB TABLET PO PRN ×3 (10:58→21:16)
[2017-04-24] MEDS: ENOXAPARIN 40 MG/0.4 ML SYRINGE. SQ SCH ×2 (12:37→21:12)
[2017-04-24] MEDS ORDERED: SIMETHICONE 80 MG TAB.CHEW PO PRN (21:15)
[2017-04-25] VITALS (9 sets, daily range): BP systolic 95–137; BP diastolic 39–81
[2017-04-25] MEDS: PIPERACILLIN/TAZOBACTAM 3.375 GM in IV NORMAL SALINE 50ML 50 ML IV SCH ×5 (00:05→23:54)
[2017-04-25] MEDS: oxyCODONE/APAP 5/325 1 TAB TABLET PO PRN ×4 (01:32→17:46)
--- NOTE | 2017-04-25 02:02 | ACF ---
Admission Forms Criteria ABDOMINAL PAIN Clinical Indications for Admission to Inpatient Care (Place 'X' for any and all applicable criteria): Admission is indicated for ANY ONE of the following(1)(2)(3)(4)(5): [ ]I. Inpatient admission required rather than observation care (Also use Abdominal Pain: Observation Care, as appropriate) because of ANY ONE of the following: [ ]a) Severe pain requiring acute inpatient management [ ]b) Identification of etiology/finding that requires inpatient care (eg, aortic dissection, free air) [ ]c) Absent bowel sounds with complete ileus(6) [ ]d) Suspected toxic megacolon [ ]e) Severe electrolyte abnormalities requiring inpatient care [ ]f) High fever or infection requiring inpatient admission as indicated by ANY ONE of following(7)(8): [ ] i) Appropriate outpatient or observational care antimicrobial treatment unavailable, not effective, or not feasible [ ] ii) Documented bacteremia [ ] iii) Temperature > 104.9 degrees F (oral) [ ] iv) T >103.1 F (oral) or < 96.8 F(rectal) that does not respond to all emergency treatment measures [ ]g) Signs of intestinal obstruction [B] [ ]h) Hemodynamic instability [ ]i) IV fluid to replace significant ongoing losses (greater than 3 L/m2 per day) (12)(13) [ ]j) Percutaneous or open drainage (eg, abscess, biliary tract ) procedures [ ]k) Parenteral nutrition regimen that must be implemented on inpatient basis [ ]l) Other condition,treatment or monitoring requiring inpatient admission. [ ]II. Peritoneal signs present [X ]III. Surgery needed that cannot be performed on an ambulatory basis. [ ]IV. Evaluation requires patient to not eat or drink for extended period ( eg, more than 24 hours). [ ]V. Contraindications and/or Inappropriate clinical situations for Observational Care in patients with abdominal pain, when ANY ONE of the following is required: [ ]a) Thorough evaluation is required to prevent catastrophic events due to delays in diagnosing (e.g.Mesenteric ischemia) 1,3 [ ]b) Patient with severe pathology or with chronic symptoms unlikely to improve in the ED stay (3) [ ]. General contraindications and/or Inappropriate clinical situations for Observational Care in patients with abdominal pain, when ANY ONE of the following is required: [ ]a) Prediction of prolongation of LOS based on ANY ONE of the following may be considered as a contraindication for observational care 2, 3, 4, 5, 6, 7, 8, 9, 10, 11 [ ]i) Age > 65 yrs. [ ]ii) Patient arriving by ambulance [ ]iii) Patient with high acuity [ ]iv) Patient requiring vital sign monitoring [ ]v) Patient on IV medication [ ]b) Systolic blood pressures 180mmHg 3,12 [ ]c) Patient with altered mental status including delirium and other alteration of consciousness, (3) [ ]d) Patient whose discharge disposition will be to a half-way home or rehabilitation home should not be managed in Emergency Department Observation Unit. CMS rule requires 3 days hospital stay before such placement.3,13 [ ]e) Patient with failure to thrive due to broad array of etiologies 3,16,17 [ ]f) Inability to ambulate 3,14 Extended stay beyond goal length of stay may be needed for(2)(3): [ ]a) Persistent abdominal pain with suspected intra-abdominal process [ ]b) Diagnosed condition requiring continued stay (e.g., pancreatitis, complicated diverticulitis) [ ]c) Surgery (e.g., colectomy) The original [facility] content created by [employer] has been revised. The portions of the content which have been revised are identified through the use of italic text or in bold, and [facility] has neither reviewed nor approved the modified material.All other unmodified content is copyright [facility]. Please see references footnoted in the original [facility] edition 2016 Admission Criteria Met?: Yes CONCHIS BARRERA Apr 25, 2017 02:02
[2017-04-25] MEDS: LEVOTHYROXINE 100 MCG TABLET PO SCH (05:15)
[2017-04-25 07:15] LABS: BASO % 0 % (0-3); EOS % 2 % (0-3); HEMATOCRIT 28.8 % (36.0-47.0); HEMOGLOBIN 9.5 g/dL (12.0-15.5); LYMPH # 1.8 x10^3/uL (1.0-4.8); LYMPH % 13 % (24-48); MEAN CORPUSCULAR HEMOGLOBIN 32 pg (25-35); MEAN CORPUSCULAR HGB CONC 33 g/dL (31-37); MEAN CORPUSCULAR VOLUME 95 fL (79-100); MONO % 5 % (0-9); NEUT % 80 % (31-73); PLATELET COUNT 97 x10^3/uL (140-400); RED BLOOD COUNT 3.03 x10^6/uL (3.50-5.40); RED CELL DISTRIBUTION WIDTH 14.7 % (11.5-14.5); WHITE BLOOD COUNT 13.3 x10^3/uL (4.0-11.0)
[2017-04-25 07:24] LABS: ALBUMIN 2.5 g/dL (3.4-5.0); ALBUMIN/GLOBULIN RATIO 0.6 (1.0-1.7); CALCIUM 7.6 mg/dL (8.5-10.1); CREATININE 0.9 mg/dL (0.6-1.0); GFR 68.3; POTASSIUM 3.6 mmol/L (3.5-5.1); TOTAL BILIRUBIN 0.6 mg/dL (0.2-1.0); TOTAL PROTEIN 6.6 g/dL (6.4-8.2)
[2017-04-25] MEDS: INSULIN ASPART 300 UNITS/3 ML INSULN.PEN SQ SCH ×4 (07:30→21:00)
[2017-04-25 07:48] LABS: INR 1.3 (0.8-1.1); PROTHROMBIN TIME PATIENT 15.8 SEC (11.7-14.0)
[2017-04-25] MEDS: ENOXAPARIN 40 MG/0.4 ML SYRINGE. SQ SCH ×2 (08:16→22:06)
--- NOTE | 2017-04-25 14:27 | PDOC ---
ALDA SARABIA JOCKEY AGENT 04/25/17 1427: SURGICAL PROGRESS NOTE Subjective family interprets for patient tired, headache minimal pain no nausea Vital Signs Vital Signs Date Time Temp Pulse Resp B/P (MAP) Pulse Ox O2 Delivery O2 Flow Rate FiO2 04/25/17 12:36 18 Room Air 04/25/17 11:22 91 10.0 04/25/17 10:48 97.5 90 124/75 (91) 97.5 I&O Intake and Output 04/25/17 07:00 Intake Total 1020 ml Output Total 950 ml Balance 70 ml Intake Oral 1020 ml Output Urine Total 950 ml General: Alert, Oriented X3, Cooperative, No acute distress Abdomen: Soft, Other (lap dressings dry, incisoinal TTP) Labs Laboratory Tests Test 04/23/17 17:01 04/23/17 18:00 04/23/17 20:19 04/24/17 04:00 Glucose (Fingerstick) 177 mg/dL (70-99) 208 mg/dL (70-99) Nasal Screen MRSA (PCR) Negative (Negative) White Blood Count 21.3 x10^3/uL (4.0-11.0) Red Blood Count 3.02 x10^6/uL (3.50-5.40) Hemoglobin 9.4 g/dL (12.0-15.5) Hematocrit 28.7 % (36.0-47.0) Mean Corpuscular Volume 95 fL (79-100) Mean Corpuscular Hemoglobin 31 pg (25-35) Mean Corpuscular Hemoglobin Concent 33 g/dL (31-37) Red Cell Distribution Width 14.6 % (11.5-14.5) Platelet Count 84 x10^3/uL (140-400) Neutrophils (%) (Auto) 85 % (31-73) Lymphocytes (%) (Auto) 6 % (24-48) Monocytes (%) (Auto) 9 % (0-9) Eosinophils (%) (Auto) 1 % (0-3) Basophils (%) (Auto) 0 % (0-3) Neutrophils # (Auto) 18.0 x10^3uL (1.8-7.7) Lymphocytes # (Auto) 1.2 x10^3/uL (1.0-4.8) Monocytes # (Auto) 1.8 x10^3/uL (0.0-1.1) Eosinophils # (Auto) 0.2 x10^3/uL (0.0-0.7) Basophils # (Auto) 0.0 x10^3/uL (0.0-0.2) Segmented Neutrophils % 52 % (35-66) Band Neutrophils % 27 % (0-9) Lymphocytes % 7 % (24-48) Monocytes % 9 % (0-10) Metamyelocytes % 5 % (0-0) Platelet Estimate Decreased (ADEQUATE) Sodium Level 141 mmol/L (136-145) Potassium Level 3.8 mmol/L (3.5-5.1) Chloride Level 107 mmol/L (98-107) Carbon Dioxide Level 23 mmol/L (21-32) Anion Gap 11 (6-14) Blood Urea Nitrogen 16 mg/dL (7-20) Creatinine 1.2 mg/dL (0.6-1.0) Estimated GFR (Cockcroft-Gault) 49.0 Glucose Level 215 mg/dL (70-99) Calcium Level 6.5 mg/dL (8.5-10.1) Test 04/24/17 07:23 04/24/17 11:53 04/24/17 16:41 04/24/17 20:35 Glucose (Fingerstick) 187 mg/dL (70-99) 198 mg/dL (70-99) 172 mg/dL (70-99) 167 mg/dL (70-99) Test 04/25/17 06:30 04/25/17 07:18 04/25/17 10:34 White Blood Count 13.3 x10^3/uL (4.0-11.0) Red Blood Count 3.03 x10^6/uL (3.50-5.40) Hemoglobin 9.5 g/dL (12.0-15.5) Hematocrit 28.8 % (36.0-47.0) Mean Corpuscular Volume 95 fL (79-100) Mean Corpuscular Hemoglobin 32 pg (25-35) Mean Corpuscular Hemoglobin Concent 33 g/dL (31-37) Red Cell Distribution Width 14.7 % (11.5-14.5) Platelet Count 97 x10^3/uL (140-400) Neutrophils (%) (Auto) 80 % (31-73) Lymphocytes (%) (Auto) 13 % (24-48) Monocytes (%) (Auto) 5 % (0-9) Eosinophils (%) (Auto) 2 % (0-3) Basophils (%) (Auto) 0 % (0-3) Neutrophils # (Auto) 10.6 x10^3uL (1.8-7.7) Lymphocytes # (Auto) 1.8 x10^3/uL (1.0-4.8) Monocytes # (Auto) 0.7 x10^3/uL (0.0-1.1) Eosinophils # (Auto) 0.2 x10^3/uL (0.0-0.7) Basophils # (Auto) 0.0 x10^3/uL (0.0-0.2) Prothrombin Time 15.8 SEC (11.7-14.0) Prothromb Time International Ratio 1.3 (0.8-1.1) Sodium Level 141 mmol/L (136-145) Potassium Level 3.6 mmol/L (3.5-5.1) Chloride Level 107 mmol/L (98-107) Carbon Dioxide Level 23 mmol/L (21-32) Anion Gap 11 (6-14) Blood Urea Nitrogen 14 mg/dL (7-20) Creatinine 0.9 mg/dL (0.6-1.0) Estimated GFR (Cockcroft-Gault) 68.3 BUN/Creatinine Ratio 16 (6-20) Glucose Level 134 mg/dL (70-99) Calcium Level 7.6 mg/dL (8.5-10.1) Total Bilirubin 0.6 mg/dL (0.2-1.0) Aspartate Amino Transf (AST/SGOT) 41 U/L (15-37) Alanine Aminotransferase (ALT/SGPT) 25 U/L (14-59) Alkaline Phosphatase 38 U/L (46-116) Total Protein 6.6 g/dL (6.4-8.2) Albumin 2.5 g/dL (3.4-5.0) Albumin/Globulin Ratio 0.6 (1.0-1.7) Glucose (Fingerstick) 127 mg/dL (70-99) 116 mg/dL (70-99) Laboratory Tests Test 04/24/17 16:41 04/24/17 20:35 04/25/17 06:30 04/25/17 07:18 Glucose (Fingerstick) 172 mg/dL (70-99) 167 mg/dL (70-99) 127 mg/dL (70-99) White Blood Count 13.3 x10^3/uL (4.0-11.0) Red Blood Count 3.03 x10^6/uL (3.50-5.40) Hemoglobin 9.5 g/dL (12.0-15.5) Hematocrit 28.8 % (36.0-47.0) Mean Corpuscular Volume 95 fL (79-100) Mean Corpuscular Hemoglobin 32 pg (25-35) Mean Corpuscular Hemoglobin Concent 33 g/dL (31-37) Red Cell Distribution Width 14.7 % (11.5-14.5) Platelet Count 97 x10^3/uL (140-400) Neutrophils (%) (Auto) 80 % (31-73) Lymphocytes (%) (Auto) 13 % (24-48) Monocytes (%) (Auto) 5 % (0-9) Eosinophils (%) (Auto) 2 % (0-3) Basophils (%) (Auto) 0 % (0-3) Neutrophils # (Auto) 10.6 x10^3uL (1.8-7.7) Lymphocytes # (Auto) 1.8 x10^3/uL (1.0-4.8) Monocytes # (Auto) 0.7 x10^3/uL (0.0-1.1) Eosinophils # (Auto) 0.2 x10^3/uL (0.0-0.7) Basophils # (Auto) 0.0 x10^3/uL (0.0-0.2) Prothrombin Time 15.8 SEC (11.7-14.0) Prothromb Time International Ratio 1.3 (0.8-1.1) Sodium Level 141 mmol/L (136-145) Potassium Level 3.6 mmol/L (3.5-5.1) Chloride Level 107 mmol/L (98-107) Carbon Dioxide Level 23 mmol/L (21-32) Anion Gap 11 (6-14) Blood Urea Nitrogen 14 mg/dL (7-20) Creatinine 0.9 mg/dL (0.6-1.0) Estimated GFR (Cockcroft-Gault) 68.3 BUN/Creatinine Ratio 16 (6-20) Glucose Level 134 mg/dL (70-99) Calcium Level 7.6 mg/dL (8.5-10.1) Total Bilirubin 0.6 mg/dL (0.2-1.0) Aspartate Amino Transf (AST/SGOT) 41 U/L (15-37) Alanine Aminotransferase (ALT/SGPT) 25 U/L (14-59) Alkaline Phosphatase 38 U/L (46-116) Total Protein 6.6 g/dL (6.4-8.2) Albumin 2.5 g/dL (3.4-5.0) Albumin/Globulin Ratio 0.6 (1.0-1.7) Test 04/25/17 10:34 Glucose (Fingerstick) 116 mg/dL (70-99) Problem List Problems Medical Problems: (1) Acute appendicitis Status: Acute Assessment/Plan s/p lap appy, wbc down to 13.3 plts up to 97 improving Problems: MARIA FERNANDA WADE MD 04/26/17 0907: SURGICAL PROGRESS NOTE Assessment/Plan Agree with above Problems: ALDA SARABIA APRN Apr 25, 2017 14:27 MARIA FERNANDA WAED MD Apr 26, 2017 09:07
--- NOTE | 2017-04-25 17:11 | PDOC ---
PROGRESS NOTES Chief Complaint Chief Complaint Acute abd pain ASSESSMENT AND PLAN: 1. appendicitis: complicated by peritonitis; s/p lap herb.y on 04/23/17. recovering appropriately. 2. Sepsis: resolved. remains on broad-spectrum abx. WBC improving 3. DM2: currently well controlled. monitor with increasing PO intake. 4. HTN: well controlled off any meds 5. Morbid obesity, BMI 48. nutrition consult 6. Urinary retention: poss related to anesthesia. d/c (2nd) Kirkpatrick. straight- cath prn. flomax 7. prophylaxis: lovenox History of Present Illness History of Present Illness feels better. finally walking Vitals Vitals Vital Signs Date Time Temp Pulse Resp B/P (MAP) Pulse Ox O2 Delivery O2 Flow Rate FiO2 04/25/17 14:39 97.5 90 20 107/55 (72) 94 Room Air 97.5 04/25/17 11:22 10.0 Physical Exam General: Alert, Oriented X3, Cooperative, No acute distress Heart: Regular rate Lungs: Clear Abdomen: Soft, Other (lap sites covered w/steristrips) Extremities: No edema Skin: No significant lesion Labs LABS Laboratory Tests Test 04/24/17 20:35 04/25/17 06:30 04/25/17 07:18 04/25/17 10:34 Glucose (Fingerstick) 167 mg/dL (70-99) 127 mg/dL (70-99) 116 mg/dL (70-99) White Blood Count 13.3 x10^3/uL (4.0-11.0) Red Blood Count 3.03 x10^6/uL (3.50-5.40) Hemoglobin 9.5 g/dL (12.0-15.5) Hematocrit 28.8 % (36.0-47.0) Mean Corpuscular Volume 95 fL (79-100) Mean Corpuscular Hemoglobin 32 pg (25-35) Mean Corpuscular Hemoglobin Concent 33 g/dL (31-37) Red Cell Distribution Width 14.7 % (11.5-14.5) Platelet Count 97 x10^3/uL (140-400) Neutrophils (%) (Auto) 80 % (31-73) Lymphocytes (%) (Auto) 13 % (24-48) Monocytes (%) (Auto) 5 % (0-9) Eosinophils (%) (Auto) 2 % (0-3) Basophils (%) (Auto) 0 % (0-3) Neutrophils # (Auto) 10.6 x10^3uL (1.8-7.7) Lymphocytes # (Auto) 1.8 x10^3/uL (1.0-4.8) Monocytes # (Auto) 0.7 x10^3/uL (0.0-1.1) Eosinophils # (Auto) 0.2 x10^3/uL (0.0-0.7) Basophils # (Auto) 0.0 x10^3/uL (0.0-0.2) Prothrombin Time 15.8 SEC (11.7-14.0) Prothromb Time International Ratio 1.3 (0.8-1.1) Sodium Level 141 mmol/L (136-145) Potassium Level 3.6 mmol/L (3.5-5.1) Chloride Level 107 mmol/L (98-107) Carbon Dioxide Level 23 mmol/L (21-32) Anion Gap 11 (6-14) Blood Urea Nitrogen 14 mg/dL (7-20) Creatinine 0.9 mg/dL (0.6-1.0) Estimated GFR (Cockcroft-Gault) 68.3 BUN/Creatinine Ratio 16 (6-20) Glucose Level 134 mg/dL (70-99) Calcium Level 7.6 mg/dL (8.5-10.1) Total Bilirubin 0.6 mg/dL (0.2-1.0) Aspartate Amino Transf (AST/SGOT) 41 U/L (15-37) Alanine Aminotransferase (ALT/SGPT) 25 U/L (14-59) Alkaline Phosphatase 38 U/L (46-116) Total Protein 6.6 g/dL (6.4-8.2) Albumin 2.5 g/dL (3.4-5.0) Albumin/Globulin Ratio 0.6 (1.0-1.7) Test 04/25/17 16:25 Glucose (Fingerstick) 134 mg/dL (70-99) NOEMY MCARTHUR MD Apr 25, 2017 17:11
[2017-04-25 18:07] LABS: HEMATOCRIT 31.8 % (36.0-47.0); HEMOGLOBIN 10.3 g/dL (12.0-15.5); RED BLOOD COUNT 3.33 x10^6/uL (3.50-5.40); RED CELL DISTRIBUTION WIDTH 14.8 % (11.5-14.5); WHITE BLOOD COUNT 11.9 x10^3/uL (4.0-11.0)
[2017-04-25 18:18] LABS: CALCIUM 7.7 mg/dL (8.5-10.1); CREATININE 0.9 mg/dL (0.6-1.0); GFR 68.3; POTASSIUM 3.2 mmol/L (3.5-5.1)
[2017-04-26] MEDS: oxyCODONE/APAP 5/325 1 TAB TABLET PO PRN ×4 (02:53→22:14)
[2017-04-26 03:00] VITALS: BP 141/87
[2017-04-26] MEDS: LEVOTHYROXINE 100 MCG TABLET PO SCH (05:50)
[2017-04-26] MEDS: PIPERACILLIN/TAZOBACTAM 3.375 GM in IV NORMAL SALINE 50ML 50 ML IV SCH ×4 (05:50→23:49)
[2017-04-26 07:00] VITALS: BP_SYST 116; BP_SYST 97; BP_DIAS 69; BP_DIAS 78
[2017-04-26] MEDS: INSULIN ASPART 300 UNITS/3 ML INSULN.PEN SQ SCH ×4 (07:30→21:00)
[2017-04-26] MEDS: ENOXAPARIN 40 MG/0.4 ML SYRINGE. SQ SCH ×2 (08:27→22:13)
--- NOTE | 2017-04-26 10:14 | PDOC ---
PROGRESS NOTES Chief Complaint Chief Complaint Acute abd pain ASSESSMENT AND PLAN: 1. appendicitis: complicated by peritonitis; s/p lap herb.y on 04/23/17. recovering appropriately. 2. Sepsis: resolved. remains on broad-spectrum abx. WBC improving, not normalized yet 3. DM2: currently well controlled. 4. HTN: well controlled off any meds 5. Morbid obesity, BMI 48. nutrition consult 6. Urinary retention: poss related to anesthesia. resolved 7. ?ELANA: desatt.ed last nite. she is aware; "working on it" with her PCP 8. prophylaxis: lovenox History of Present Illness History of Present Illness sleepy; no c/o. up walking yesterday; no persistent urinary retention Vitals Vitals Vital Signs Date Time Temp Pulse Resp B/P (MAP) Pulse Ox O2 Delivery O2 Flow Rate FiO2 04/26/17 09:24 16 Room Air 04/26/17 07:00 98.4 72 116/69 (85) 96 98.4 04/26/17 04:00 2.0 Physical Exam General: Alert, Oriented X3, Cooperative, No acute distress Heart: Regular rate Lungs: Clear Abdomen: Normal bowel sounds, Soft, Other (lap sites covered w/steristrips) Extremities: No edema Skin: No significant lesion Labs LABS Laboratory Tests Test 04/25/17 10:34 04/25/17 16:25 04/25/17 17:55 04/25/17 20:29 Glucose (Fingerstick) 116 mg/dL (70-99) 134 mg/dL (70-99) 136 mg/dL (70-99) White Blood Count 11.9 x10^3/uL (4.0-11.0) Red Blood Count 3.33 x10^6/uL (3.50-5.40) Hemoglobin 10.3 g/dL (12.0-15.5) Hematocrit 31.8 % (36.0-47.0) Mean Corpuscular Volume 96 fL (79-100) Mean Corpuscular Hemoglobin 31 pg (25-35) Mean Corpuscular Hemoglobin Concent 33 g/dL (31-37) Red Cell Distribution Width 14.8 % (11.5-14.5) Platelet Count 110 x10^3/uL (140-400) Sodium Level 139 mmol/L (136-145) Potassium Level 3.2 mmol/L (3.5-5.1) Chloride Level 104 mmol/L (98-107) Carbon Dioxide Level 24 mmol/L (21-32) Anion Gap 11 (6-14) Blood Urea Nitrogen 12 mg/dL (7-20) Creatinine 0.9 mg/dL (0.6-1.0) Estimated GFR (Cockcroft-Gault) 68.3 Glucose Level 186 mg/dL (70-99) Calcium Level 7.7 mg/dL (8.5-10.1) Test 04/26/17 07:38 Glucose (Fingerstick) 98 mg/dL (70-99) NOEMY MCARTHUR MD Apr 26, 2017 10:14
[2017-04-26 11:00] VITALS: BP 127/68
--- NOTE | 2017-04-26 11:47 | PDOC ---
PULMONARY PROGRESS NOTES Subjective on RA, no SOA Vitals Vital Signs Date Time Temp Pulse Resp B/P (MAP) Pulse Ox O2 Delivery O2 Flow Rate FiO2 04/26/17 09:24 16 Room Air 04/26/17 07:00 98.4 72 116/69 (85) 96 98.4 04/26/17 04:00 2.0 General: Alert, No acute distress Lungs: Clear Cardiovascular: S1 Abdomen: Soft, Other (obese) Neuro Exam: Alert Extremities: Other (trace edema) Skin: Warm Labs Laboratory Tests Test 04/24/17 11:53 04/24/17 16:41 04/24/17 20:35 04/25/17 06:30 Glucose (Fingerstick) 198 mg/dL (70-99) 172 mg/dL (70-99) 167 mg/dL (70-99) White Blood Count 13.3 x10^3/uL (4.0-11.0) Red Blood Count 3.03 x10^6/uL (3.50-5.40) Hemoglobin 9.5 g/dL (12.0-15.5) Hematocrit 28.8 % (36.0-47.0) Mean Corpuscular Volume 95 fL (79-100) Mean Corpuscular Hemoglobin 32 pg (25-35) Mean Corpuscular Hemoglobin Concent 33 g/dL (31-37) Red Cell Distribution Width 14.7 % (11.5-14.5) Platelet Count 97 x10^3/uL (140-400) Neutrophils (%) (Auto) 80 % (31-73) Lymphocytes (%) (Auto) 13 % (24-48) Monocytes (%) (Auto) 5 % (0-9) Eosinophils (%) (Auto) 2 % (0-3) Basophils (%) (Auto) 0 % (0-3) Neutrophils # (Auto) 10.6 x10^3uL (1.8-7.7) Lymphocytes # (Auto) 1.8 x10^3/uL (1.0-4.8) Monocytes # (Auto) 0.7 x10^3/uL (0.0-1.1) Eosinophils # (Auto) 0.2 x10^3/uL (0.0-0.7) Basophils # (Auto) 0.0 x10^3/uL (0.0-0.2) Prothrombin Time 15.8 SEC (11.7-14.0) Prothromb Time International Ratio 1.3 (0.8-1.1) Sodium Level 141 mmol/L (136-145) Potassium Level 3.6 mmol/L (3.5-5.1) Chloride Level 107 mmol/L (98-107) Carbon Dioxide Level 23 mmol/L (21-32) Anion Gap 11 (6-14) Blood Urea Nitrogen 14 mg/dL (7-20) Creatinine 0.9 mg/dL (0.6-1.0) Estimated GFR (Cockcroft-Gault) 68.3 BUN/Creatinine Ratio 16 (6-20) Glucose Level 134 mg/dL (70-99) Calcium Level 7.6 mg/dL (8.5-10.1) Total Bilirubin 0.6 mg/dL (0.2-1.0) Aspartate Amino Transf (AST/SGOT) 41 U/L (15-37) Alanine Aminotransferase (ALT/SGPT) 25 U/L (14-59) Alkaline Phosphatase 38 U/L (46-116) Total Protein 6.6 g/dL (6.4-8.2) Albumin 2.5 g/dL (3.4-5.0) Albumin/Globulin Ratio 0.6 (1.0-1.7) Test 04/25/17 07:18 04/25/17 10:34 04/25/17 16:25 04/25/17 17:55 Glucose (Fingerstick) 127 mg/dL (70-99) 116 mg/dL (70-99) 134 mg/dL (70-99) White Blood Count 11.9 x10^3/uL (4.0-11.0) Red Blood Count 3.33 x10^6/uL (3.50-5.40) Hemoglobin 10.3 g/dL (12.0-15.5) Hematocrit 31.8 % (36.0-47.0) Mean Corpuscular Volume 96 fL (79-100) Mean Corpuscular Hemoglobin 31 pg (25-35) Mean Corpuscular Hemoglobin Concent 33 g/dL (31-37) Red Cell Distribution Width 14.8 % (11.5-14.5) Platelet Count 110 x10^3/uL (140-400) Sodium Level 139 mmol/L (136-145) Potassium Level 3.2 mmol/L (3.5-5.1) Chloride Level 104 mmol/L (98-107) Carbon Dioxide Level 24 mmol/L (21-32) Anion Gap 11 (6-14) Blood Urea Nitrogen 12 mg/dL (7-20) Creatinine 0.9 mg/dL (0.6-1.0) Estimated GFR (Cockcroft-Gault) 68.3 Glucose Level 186 mg/dL (70-99) Calcium Level 7.7 mg/dL (8.5-10.1) Test 04/25/17 20:29 04/26/17 07:38 04/26/17 11:18 Glucose (Fingerstick) 136 mg/dL (70-99) 98 mg/dL (70-99) 122 mg/dL (70-99) Laboratory Tests Test 04/25/17 16:25 04/25/17 17:55 04/25/17 20:29 04/26/17 07:38 Glucose (Fingerstick) 134 mg/dL (70-99) 136 mg/dL (70-99) 98 mg/dL (70-99) White Blood Count 11.9 x10^3/uL (4.0-11.0) Red Blood Count 3.33 x10^6/uL (3.50-5.40) Hemoglobin 10.3 g/dL (12.0-15.5) Hematocrit 31.8 % (36.0-47.0) Mean Corpuscular Volume 96 fL (79-100) Mean Corpuscular Hemoglobin 31 pg (25-35) Mean Corpuscular Hemoglobin Concent 33 g/dL (31-37) Red Cell Distribution Width 14.8 % (11.5-14.5) Platelet Count 110 x10^3/uL (140-400) Sodium Level 139 mmol/L (136-145) Potassium Level 3.2 mmol/L (3.5-5.1) Chloride Level 104 mmol/L (98-107) Carbon Dioxide Level 24 mmol/L (21-32) Anion Gap 11 (6-14) Blood Urea Nitrogen 12 mg/dL (7-20) Creatinine 0.9 mg/dL (0.6-1.0) Estimated GFR (Cockcroft-Gault) 68.3 Glucose Level 186 mg/dL (70-99) Calcium Level 7.7 mg/dL (8.5-10.1) Test 04/26/17 11:18 Glucose (Fingerstick) 122 mg/dL (70-99) Medications Active Scripts Medications Dose Route/Sig Max Daily Dose Days Date Category Sprintec (Norgestimate-Ethinyl Estradiol) 1 Each Tablet 1 Tab PO DAILY 04/23/17 Reported Iron (Ferrous Sulfate) 325 Mg Tablet 325 Mg PO DAILYWBKFT 04/23/17 Reported Levothyroxine Sodium 200 Mcg Tablet 200 Mcg PO DAILYAC 04/23/17 Reported Metformin Hcl 1,000 Mg Tablet 1,000 Mg PO BIDWMEALS 04/23/17 Reported Lisinopril-Hctz 10-12.5 Mg Tab (Lisinopril/Hydrochlorothiazide) 1 Each Tablet 1 Tab PO DAILY 04/23/17 Reported Impression . 1. Acute respiratory failure POA due to sepsis. status post surgery 2. Severe metabolic acidosis secondary to appendicitis and sepsis. 3. Morbid obesity. 4. Leukocytosis. 5. Possible urinary tract infection Plan . 1. Overall, the patient has improved. on RA 2. We will continue current postop care. 3. Advance diet per surgeon. 4. IS 5. P.r.n. oxygen will see NIMO Medina MD Apr 26, 2017 11:47
--- NOTE | 2017-04-26 13:52 | PATHOLOGY ---
PATHOLOGY REPORT * * * * * * * * FINAL DIAGNOSIS: Appendix, laparoscopic appendectomy: - Acute appendicitis with serosal exudate. COMMENT: There is no evidence of rupture. There is no evidence of malignancy. (JPM:pit; 04/26/2017) REPORT ELECTRONICALLY SIGNED BY: Xavier Moore M.D. DATE/TIME: 04/26/2017 13:51 * * * * * * * * GROSS PATHOLOGY: Received in formalin labeled "Eben Jaquez, appendix," is an appendix measuring 4.3 cm in length and 1.0 cm in diameter with a large amount of attached mesoappendix. The serosal surface is rebolledo barrera, focally hemorrhagic and showing areas of adherent pale yellow tax exudate. Sectioning reveals a pinpoint rebolledo barrera, focally necrotic appearing lumen throughout. Wall Man sections are submitted in cassette A1. (JPM; 04/25/17) INITIAL CPT CODE(S): A; 28057 Professional services performed [place] [email or web address] [address] Technical services performed by [email or web address] at [address] [place] [address] [address], [place] [address]. SPECIMEN(S) RECEIVED: A.Appendix CLINICAL HISTORY: Appendicitis PATIENT: EBEN JAQUEZ /AGE: 1007/13/1975 (Age: 41) PATIENT #: [id number] ALT CASE #: SPECIMEN COLLECTION DATE: 04/23/2017 SPECIMEN RECEIVED DATE: 04/25/2017 [facility] - [address] [place] [address] - PHONE: [phone] * * * END OF REPORT * * *
--- NOTE | 2017-04-26 14:04 | PDOC ---
SURGICAL PROGRESS NOTE Subjective tolerating diet, does not like the food here much no n/v incisional pain with movement Vital Signs Vital Signs Date Time Temp Pulse Resp B/P (MAP) Pulse Ox O2 Delivery O2 Flow Rate FiO2 04/26/17 11:00 99.1 82 16 127/68 (87) 96 Room Air 99.1 04/26/17 04:00 2.0 I&O Intake and Output 04/26/17 07:00 Intake Total 480 ml Output Total 1200 ml Balance -720 ml Intake Oral 380 ml IV Total 100 ml Output Urine Total 1200 ml # Voids 2 General: Alert, Oriented X3, Cooperative, No acute distress Abdomen: Soft, Other (ND, lap sites c/d/i, no erythema) Labs Laboratory Tests Test 04/24/17 16:41 04/24/17 20:35 04/25/17 06:30 04/25/17 07:18 Glucose (Fingerstick) 172 mg/dL (70-99) 167 mg/dL (70-99) 127 mg/dL (70-99) White Blood Count 13.3 x10^3/uL (4.0-11.0) Red Blood Count 3.03 x10^6/uL (3.50-5.40) Hemoglobin 9.5 g/dL (12.0-15.5) Hematocrit 28.8 % (36.0-47.0) Mean Corpuscular Volume 95 fL (79-100) Mean Corpuscular Hemoglobin 32 pg (25-35) Mean Corpuscular Hemoglobin Concent 33 g/dL (31-37) Red Cell Distribution Width 14.7 % (11.5-14.5) Platelet Count 97 x10^3/uL (140-400) Neutrophils (%) (Auto) 80 % (31-73) Lymphocytes (%) (Auto) 13 % (24-48) Monocytes (%) (Auto) 5 % (0-9) Eosinophils (%) (Auto) 2 % (0-3) Basophils (%) (Auto) 0 % (0-3) Neutrophils # (Auto) 10.6 x10^3uL (1.8-7.7) Lymphocytes # (Auto) 1.8 x10^3/uL (1.0-4.8) Monocytes # (Auto) 0.7 x10^3/uL (0.0-1.1) Eosinophils # (Auto) 0.2 x10^3/uL (0.0-0.7) Basophils # (Auto) 0.0 x10^3/uL (0.0-0.2) Prothrombin Time 15.8 SEC (11.7-14.0) Prothromb Time International Ratio 1.3 (0.8-1.1) Sodium Level 141 mmol/L (136-145) Potassium Level 3.6 mmol/L (3.5-5.1) Chloride Level 107 mmol/L (98-107) Carbon Dioxide Level 23 mmol/L (21-32) Anion Gap 11 (6-14) Blood Urea Nitrogen 14 mg/dL (7-20) Creatinine 0.9 mg/dL (0.6-1.0) Estimated GFR (Cockcroft-Gault) 68.3 BUN/Creatinine Ratio 16 (6-20) Glucose Level 134 mg/dL (70-99) Calcium Level 7.6 mg/dL (8.5-10.1) Total Bilirubin 0.6 mg/dL (0.2-1.0) Aspartate Amino Transf (AST/SGOT) 41 U/L (15-37) Alanine Aminotransferase (ALT/SGPT) 25 U/L (14-59) Alkaline Phosphatase 38 U/L (46-116) Total Protein 6.6 g/dL (6.4-8.2) Albumin 2.5 g/dL (3.4-5.0) Albumin/Globulin Ratio 0.6 (1.0-1.7) Test 04/25/17 10:34 04/25/17 16:25 04/25/17 17:55 04/25/17 20:29 Glucose (Fingerstick) 116 mg/dL (70-99) 134 mg/dL (70-99) 136 mg/dL (70-99) White Blood Count 11.9 x10^3/uL (4.0-11.0) Red Blood Count 3.33 x10^6/uL (3.50-5.40) Hemoglobin 10.3 g/dL (12.0-15.5) Hematocrit 31.8 % (36.0-47.0) Mean Corpuscular Volume 96 fL (79-100) Mean Corpuscular Hemoglobin 31 pg (25-35) Mean Corpuscular Hemoglobin Concent 33 g/dL (31-37) Red Cell Distribution Width 14.8 % (11.5-14.5) Platelet Count 110 x10^3/uL (140-400) Sodium Level 139 mmol/L (136-145) Potassium Level 3.2 mmol/L (3.5-5.1) Chloride Level 104 mmol/L (98-107) Carbon Dioxide Level 24 mmol/L (21-32) Anion Gap 11 (6-14) Blood Urea Nitrogen 12 mg/dL (7-20) Creatinine 0.9 mg/dL (0.6-1.0) Estimated GFR (Cockcroft-Gault) 68.3 Glucose Level 186 mg/dL (70-99) Calcium Level 7.7 mg/dL (8.5-10.1) Test 04/26/17 07:38 04/26/17 11:18 Glucose (Fingerstick) 98 mg/dL (70-99) 122 mg/dL (70-99) Laboratory Tests Test 04/25/17 16:25 04/25/17 17:55 04/25/17 20:29 04/26/17 07:38 Glucose (Fingerstick) 134 mg/dL (70-99) 136 mg/dL (70-99) 98 mg/dL (70-99) White Blood Count 11.9 x10^3/uL (4.0-11.0) Red Blood Count 3.33 x10^6/uL (3.50-5.40) Hemoglobin 10.3 g/dL (12.0-15.5) Hematocrit 31.8 % (36.0-47.0) Mean Corpuscular Volume 96 fL (79-100) Mean Corpuscular Hemoglobin 31 pg (25-35) Mean Corpuscular Hemoglobin Concent 33 g/dL (31-37) Red Cell Distribution Width 14.8 % (11.5-14.5) Platelet Count 110 x10^3/uL (140-400) Sodium Level 139 mmol/L (136-145) Potassium Level 3.2 mmol/L (3.5-5.1) Chloride Level 104 mmol/L (98-107) Carbon Dioxide Level 24 mmol/L (21-32) Anion Gap 11 (6-14) Blood Urea Nitrogen 12 mg/dL (7-20) Creatinine 0.9 mg/dL (0.6-1.0) Estimated GFR (Cockcroft-Gault) 68.3 Glucose Level 186 mg/dL (70-99) Calcium Level 7.7 mg/dL (8.5-10.1) Test 04/26/17 11:18 Glucose (Fingerstick) 122 mg/dL (70-99) Problem List Problems Medical Problems: (1) Acute appendicitis Status: Acute Assessment/Plan s/p appy improving increase activity Problems: ALDA SARABIA APRN Apr 26, 2017 14:04
[2017-04-26 15:00] VITALS: BP 132/72
[2017-04-26] MEDS: POLYETHYLENE GLYCOL 3350 17 GM PACKET. PO PRN (18:18)
[2017-04-26 19:44] VITALS: BP 124/68
[2017-04-26 23:05] VITALS: BP 136/64
[2017-04-27 03:32] VITALS: BP 131/77
[2017-04-27] MEDS: PIPERACILLIN/TAZOBACTAM 3.375 GM in IV NORMAL SALINE 50ML 50 ML IV SCH ×2 (05:58→12:00)
[2017-04-27] MEDS: LEVOTHYROXINE 100 MCG TABLET PO SCH (05:59)
[2017-04-27 07:00] VITALS: BP 142/81
[2017-04-27] MEDS: INSULIN ASPART 300 UNITS/3 ML INSULN.PEN SQ SCH ×2 (07:30→11:30)
[2017-04-27] MEDS: POLYETHYLENE GLYCOL 3350 17 GM PACKET. PO PRN (09:08)
[2017-04-27] MEDS: ENOXAPARIN 40 MG/0.4 ML SYRINGE. SQ SCH (09:08)
[2017-04-27] MEDS: oxyCODONE/APAP 5/325 1 TAB TABLET PO PRN (09:11)
[2017-04-27 09:18] LABS: BASO % 1 % (0-3); EOS % 5 % (0-3); HEMOGLOBIN 9.9 g/dL (12.0-15.5); LYMPH # 2.1 x10^3/uL (1.0-4.8); LYMPH % 23 % (24-48); MEAN CORPUSCULAR HEMOGLOBIN 32 pg (25-35); MEAN CORPUSCULAR HGB CONC 34 g/dL (31-37); MEAN CORPUSCULAR VOLUME 92 fL (79-100); MONO % 9 % (0-9); NEUT % 63 % (31-73); PLATELET COUNT 116 x10^3/uL (140-400); RED BLOOD COUNT 3.15 x10^6/uL (3.50-5.40); RED CELL DISTRIBUTION WIDTH 14.4 % (11.5-14.5); WHITE BLOOD COUNT 9.1 x10^3/uL (4.0-11.0)
[2017-04-27 10:00] LABS: CALCIUM 7.9 mg/dL (8.5-10.1); CREATININE 0.6 mg/dL (0.6-1.0); GFR 109.1; POTASSIUM 3.7 mmol/L (3.5-5.1)
[2017-04-27 11:00] VITALS: BP 143/75
--- NOTE | 2017-04-27 11:40 | PDOC ---
SURGICAL PROGRESS NOTE Subjective family at bedside translates no new complaints just had a BM Vital Signs Vital Signs Date Time Temp Pulse Resp B/P (MAP) Pulse Ox O2 Delivery O2 Flow Rate FiO2 04/27/17 08:10 Room Air 04/27/17 07:00 98.5 72 20 142/81 (101) 98 98.5 04/26/17 15:08 2.0 I&O Intake and Output 04/27/17 07:00 Intake Total 2110 ml Output Total 800 ml Balance 1310 ml Intake Oral 2110 ml Output Urine Total 800 ml # Voids 4 PATIENT HAS A REILLY: No General: Alert, No acute distress Abdomen: Soft, No tenderness Labs Laboratory Tests Test 04/25/17 16:25 04/25/17 17:55 04/25/17 20:29 04/26/17 07:38 Glucose (Fingerstick) 134 mg/dL (70-99) 136 mg/dL (70-99) 98 mg/dL (70-99) White Blood Count 11.9 x10^3/uL (4.0-11.0) Red Blood Count 3.33 x10^6/uL (3.50-5.40) Hemoglobin 10.3 g/dL (12.0-15.5) Hematocrit 31.8 % (36.0-47.0) Mean Corpuscular Volume 96 fL (79-100) Mean Corpuscular Hemoglobin 31 pg (25-35) Mean Corpuscular Hemoglobin Concent 33 g/dL (31-37) Red Cell Distribution Width 14.8 % (11.5-14.5) Platelet Count 110 x10^3/uL (140-400) Sodium Level 139 mmol/L (136-145) Potassium Level 3.2 mmol/L (3.5-5.1) Chloride Level 104 mmol/L (98-107) Carbon Dioxide Level 24 mmol/L (21-32) Anion Gap 11 (6-14) Blood Urea Nitrogen 12 mg/dL (7-20) Creatinine 0.9 mg/dL (0.6-1.0) Estimated GFR (Cockcroft-Gault) 68.3 Glucose Level 186 mg/dL (70-99) Calcium Level 7.7 mg/dL (8.5-10.1) Test 04/26/17 11:18 04/26/17 16:46 04/26/17 20:47 04/27/17 07:26 Glucose (Fingerstick) 122 mg/dL (70-99) 113 mg/dL (70-99) 114 mg/dL (70-99) 97 mg/dL (70-99) Test 04/27/17 09:00 White Blood Count 9.1 x10^3/uL (4.0-11.0) Red Blood Count 3.15 x10^6/uL (3.50-5.40) Hemoglobin 9.9 g/dL (12.0-15.5) Hematocrit 29.0 % (36.0-47.0) Mean Corpuscular Volume 92 fL (79-100) Mean Corpuscular Hemoglobin 32 pg (25-35) Mean Corpuscular Hemoglobin Concent 34 g/dL (31-37) Red Cell Distribution Width 14.4 % (11.5-14.5) Platelet Count 116 x10^3/uL (140-400) Neutrophils (%) (Auto) 63 % (31-73) Lymphocytes (%) (Auto) 23 % (24-48) Monocytes (%) (Auto) 9 % (0-9) Eosinophils (%) (Auto) 5 % (0-3) Basophils (%) (Auto) 1 % (0-3) Neutrophils # (Auto) 5.7 x10^3uL (1.8-7.7) Lymphocytes # (Auto) 2.1 x10^3/uL (1.0-4.8) Monocytes # (Auto) 0.8 x10^3/uL (0.0-1.1) Eosinophils # (Auto) 0.4 x10^3/uL (0.0-0.7) Basophils # (Auto) 0.0 x10^3/uL (0.0-0.2) Sodium Level 139 mmol/L (136-145) Potassium Level 3.7 mmol/L (3.5-5.1) Chloride Level 105 mmol/L (98-107) Carbon Dioxide Level 25 mmol/L (21-32) Anion Gap 9 (6-14) Blood Urea Nitrogen 7 mg/dL (7-20) Creatinine 0.6 mg/dL (0.6-1.0) Estimated GFR (Cockcroft-Gault) 109.1 Glucose Level 97 mg/dL (70-99) Calcium Level 7.9 mg/dL (8.5-10.1) Laboratory Tests Test 04/26/17 16:46 04/26/17 20:47 04/27/17 07:26 04/27/17 09:00 Glucose (Fingerstick) 113 mg/dL (70-99) 114 mg/dL (70-99) 97 mg/dL (70-99) White Blood Count 9.1 x10^3/uL (4.0-11.0) Red Blood Count 3.15 x10^6/uL (3.50-5.40) Hemoglobin 9.9 g/dL (12.0-15.5) Hematocrit 29.0 % (36.0-47.0) Mean Corpuscular Volume 92 fL (79-100) Mean Corpuscular Hemoglobin 32 pg (25-35) Mean Corpuscular Hemoglobin Concent 34 g/dL (31-37) Red Cell Distribution Width 14.4 % (11.5-14.5) Platelet Count 116 x10^3/uL (140-400) Neutrophils (%) (Auto) 63 % (31-73) Lymphocytes (%) (Auto) 23 % (24-48) Monocytes (%) (Auto) 9 % (0-9) Eosinophils (%) (Auto) 5 % (0-3) Basophils (%) (Auto) 1 % (0-3) Neutrophils # (Auto) 5.7 x10^3uL (1.8-7.7) Lymphocytes # (Auto) 2.1 x10^3/uL (1.0-4.8) Monocytes # (Auto) 0.8 x10^3/uL (0.0-1.1) Eosinophils # (Auto) 0.4 x10^3/uL (0.0-0.7) Basophils # (Auto) 0.0 x10^3/uL (0.0-0.2) Sodium Level 139 mmol/L (136-145) Potassium Level 3.7 mmol/L (3.5-5.1) Chloride Level 105 mmol/L (98-107) Carbon Dioxide Level 25 mmol/L (21-32) Anion Gap 9 (6-14) Blood Urea Nitrogen 7 mg/dL (7-20) Creatinine 0.6 mg/dL (0.6-1.0) Estimated GFR (Cockcroft-Gault) 109.1 Glucose Level 97 mg/dL (70-99) Calcium Level 7.9 mg/dL (8.5-10.1) Problem List Problems Medical Problems: (1) Acute appendicitis Status: Acute Assessment/Plan POD 4 l/s appendectomy OK for home from surgery standpoint f/u with Dr Yeh in two weeks Problems: LILI TROTTER MD Apr 27, 2017 11:40
[2017-04-27] MEDS ORDERED: OXYC1TAB7 PO (12:06)
--- NOTE | 2017-04-27 12:08 | PDOC3 ---
Discharge Summary [facility] Date of Admission: Apr 23, 2017 Discharge Date: Apr 27, 2017 Admitting Diagnosis 1. appendicitis: complicated by peritonitis? s/p lap herb.y on 04/23/17. recovering appropriately. 2. Sepsis: resolved. remains on broad-spectrum abx. WBC improving, not normalized yet 3. DM2: currently well controlled. 4. HTN: well controlled off any meds 5. Morbid obesity, BMI 48. nutrition consult 6. Urinary retention: poss related to anesthesia. resolved 7. ?ELANA: desatt.ed last nite. she is aware; "working on it" with her PCP acute resp failure with elana vs. obesity associated hypoventilation Problems: Final Diagnosis CONSULTS sx pulm Brief Hospital Course Ms. Soto is a 41 old F, DM2, morbid obesity, came for abd pain. CT showed acute appendicities. she underwent lap appendicitis, need o2 for a few days. now she had bm, some nausea, eating ok, sat fine at RA, possible peritonitis on zosyn. dc home with augmentin as per sx. dc time 35min General: Alert, Oriented X3, Cooperative, No acute distress Heart: Regular rate Lungs: Clear Abdomen: Normal bowel sounds, Soft, Other (lap sites covered w/steristrips), mild tenderness Extremities: No edema Skin: No significant lesion Problems: Scheduled Ferrous Sulfate (Iron), 325 MG PO DAILYWBKFT, (Reported) Levothyroxine Sodium (Levothyroxine Sodium), 200 MCG PO DAILYAC, (Reported) Lisinopril/Hydrochlorothiazide (Lisinopril-Hctz 10-12.5 Mg Tab), 1 TAB PO DAILY, (Reported) Metformin Hcl (Metformin Hcl), 1,000 MG PO BIDWMEALS, (Reported) Norgestimate-Ethinyl Estradiol (Sprintec), 1 TAB PO DAILY, (Reported) Scheduled PRN Oxycodone Hcl/Acetaminophen (Oxycodone-Acetaminophen 5-325), 2 TAB PO PRN Q4HRS PRN for MODERATE PAIN, SEVERE PAIN KAYLA CARTER MD Apr 27, 2017 12:08
== END 2017-04-27 15:30 | disposition home or self-care (01) | DRG 853 ==
LOC: ER 21:00 → 4 NORTH 04-23 00:16 → 2 NORTH 04-23 03:57 → 1 WEST ICU 04-23 09:31 → 4 NORTH 04-24 11:34
PROVIDERS: ADMIT Internal Medicine; ATTEND Internal Medicine
PROC: 0DTJ4ZZ Resection of Appendix, Percutaneous Endoscopic Approach (ICD-10-PCS; principal; 2017-04-23 08:30)
DX: A41.9 Sepsis, unspecified organism (principal); K35.3 Acute appendicitis with localized peritonitis; J96.00 Acute respiratory failure, unspecified whether with hypoxia or hypercapnia; Z68.43 Body mass index [BMI] 50.0-59.9, adult; E03.9 Hypothyroidism, unspecified; E11.9 Type 2 diabetes mellitus without complications; E66.01 Morbid (severe) obesity due to excess calories; E87.6 Hypokalemia; E88.09 Other disorders of plasma-protein metabolism, not elsewhere classified; G47.33 Obstructive sleep apnea (adult) (pediatric); I10 Essential (primary) hypertension; R33.9 Retention of urine, unspecified; R65.20 Severe sepsis without septic shock; Z83.3 Family history of diabetes mellitus
CPT/HCPCS: 36415; 36600; 74177; 80048; 80053; 81001; 81025; 82805; 82962; 83036; 83605; 83690; 85007; 85027; 85610; 87086; 87641; 88304; 96361; 96365; 96375; J0330; J1100; J1650; J1815; J2001; J2270; J2310; J2405; J2543; J2704; J2710; J3010; J3480; J3490; J7030; J7040; J7120; 99285-25